=== PATIENT | female | born 1975 | race Caucasian/White ===

== ENCOUNTER 2019-05-30 18:11 | Emergency (ER) | payer OTHER, SELFPAY ==
--- NOTE | 2019-05-30 18:18 | ED_ITS ---
Entered by Hortencia Douglas, acting as scribe for HPI - Extremity Injury (Upper) General: Chief Complaint: Extremity Injury, Lower Stated Complaint: left arm pain Time Seen by Provider: 05/30/19 18:17 Source: patient and RN notes reviewed Mode of arrival: ambulatory Limitations: no limitations History of Present Illness: HPI narrative: 43 yo female presents to ED with complaints of L arm pain. She said this began 1 week ago with pain in her armpit which migrated to her L side neck then down her L arm. She describes the pain as a constant ache . She has had shortness of breath but has had no chest pain. She has a reddened area in the crease of her L elbow. She said nothing relieves the pain nor worsens the pain. The patient has a history of high blood pressure but no prior history but has a strong family history of cardiac problems, breast cancer and diabetes. MD complaint: injury to: left, shoulder and arm Onset (ago): week(s) (1) Other Extremity Injury: Left: arm and shoulder Other injuries: none Severity: moderate Relieving factors: none Exacerbating factors: none Context: other (no injury, pain developed) Associated symptoms: Reports neck pain (L side) and other (short of breath) Treatments prior to arrival: NSAIDS Review of Systems General: Reports: other (negative unless marked) Const: Denies: fever, chills, body aches, fatigue, malaise or diaphoresis Eyes: Denies: change in vision or blurry vision ENMT: Denies: throat pain, painful swallowing, hoarseness, ear pain, ear discharge, Change in hearing or nasal discharge Card: Denies: chest pain, palpitations, irregular heart rhythm, syncope, pre- syncope, shortness of breath on exertion or shortness of breath when lying down Resp: Denies: productive cough, non-productive cough, wheezing, coughing up blood or chest congestion GI: Denies: abdominal pain, nausea, vomiting, vomiting blood, coffee grounds in vomit, diarrhea, constipation, cramping, blood in stool or black tarry stool : Denies: flank pain, painful urination, urinary frequency, urinary urgency, decreased urine ouput, urinary incontinence or blood in urine Musc: Reports: neck pain (L side) Skin/Breast: Denies: skin tenderness or yellow skin Santi/Lymph: Denies: easy bruising, easy bleeding, petechiae or enlarged lymph nodes All/Imm: Denies: hives, throat swelling, tongue swelling, facial swelling or acute wheezing PFSH ED PFSH: Social History Smoking and tobacco status: former smoker Physical Exam Const: COMMON NORMALS: no apparent distress, oriented x3, no limitations, healthy appearing and well nourished EXAM LIMITATIONS: no altered mental status GENERAL APPEARANCE: cooperative, well kempt and well developed ORIENTATION/CONSCIOUSNESS: Yes awake HENMT: COMMON NORMALS: normocephalic, head/scalp atraumatic, hearing grossly normal bilaterally, external ears normal, EAC's normal, external nose normal and moist oral mucous membranes HEAD & SCALP: normal to inspection, normocephalic and atraumatic FACE & SINUS: normal facial exam and face symmetric NOSE: external nose normal and nares normal EXTERNAL EAR: Yes external ears normal EXTERNAL AUDITORY CANAL: EAC's normal MOUTH: oral and palatal mucosa normal and tongue normal Eye: COMMON NORMALS: PERRL, EOMs intact bilaterally, conjunctivae normal and no scleral icterus GENERAL EYE: normal appearance of both eyes and normal light reflex CONJUNCTIVA: Yes conjunctivae normal SCLERA: sclerae normal CORNEA: Yes corneas normal PUPIL: Yes PERRL DIRECT OPHTHALMOSCOPY: Yes normal light reflex Neck/C-Spine: COMMON NORMALS: full ROM, no lymphadenopathy, supple, no meningeal signs and no JVD GENERAL: Yes normal visual inspection and Yes trachea midline CERVICAL SPINE: Yes cervical ROM normal Chest: COMMONS NORMALS: inspection of chest normal and palpation of chest normal Resp: COMMON NORMALS: normal respiratory effort, no retractions, no use of accessory muscles and clear to auscultation bilaterally EFFORT & INSPECTION: Yes able to speak in complete sentences AUSCULTATION: clear to auscultation bilaterally Cardio: COMMON NORMALS: no JVD, regular rate, regular rhythm, S1 normal heart sound, S2 normal heart sound, no gallops, no clicks, no murmurs and no rub JUGULAR VENOUS DISTENTION: no JVD RATE: regular rate RHYTHM: regular rhythm HEART SOUNDS: S1 normal and S2 normal GI: COMMON NORMALS: soft to palpation, non-tender, no hepatosplenomegaly and no masses INSPECTION: Yes normal to inspection PALPATION: Yes soft and Yes no hepatosplenomegaly : COMMON NORMALS: Yes no CVA tenderness BLADDER/KIDNEY EXAM: Yes no CVA tenderness Back/Pelvis: COMMON NORMALS: no CVA tenderness, thoracic and lumbar spine normal to inspection, no thoracic nor lumbar tenderness and thoraco-lumbar ROM normal Extremity: COMMON NORMALS: normal to inspection, full ROM, normal capillary refill, no joint enlargement, no clubbing, cyanosis or edema and no calf tenderness Neuro: COMMON NORMALS: oriented x3, CN's II-XII intact bilaterally, moves all extremities, no focal motor deficits and no sensory deficits noted MENINGEAL SIGNS: Yes no meningeal signs Psych: COMMON NORMALS: mental status grossly normal, thought process normal, cooperative, affect normal, speech normal and activity/motor behavior normal APPEARANCE: Yes well kempt SPEECH: Yes normal speech THOUGHT PROCESS: normal thought process Skin: COMMON NORMALS: skin turgor normal, no jaundice, no petechiae and no mottling GENERAL SKIN EXAM: turgor normal Course Vital Signs: Vital signs: Vital Signs Temperature 98.3 F 05/30/19 19:50 Pulse Rate 91 05/30/19 19:50 Respiratory Rate 14 05/30/19 19:50 Blood Pressure 136/90 05/30/19 19:50 Pulse Oximetry 99 05/30/19 19:50 MDM - Extremity Injury (Upper) MDM Narrative: Medical decision making narrative: Samra is a nice 43-year-old female who comes in complaining of left arm pain. The pain is primarily in the left antecubital fossa. She is primarily concerned about a blood clot but her d-dimer is negative and there is no arm swelling. She has no chest pain and her shortness of breath is really more of her being scared her pulse ox is normal and she has a normal respiratory rate. Her chest x-ray is clear. She has had constant pain for a week with a normal EKG and a troponin has come back as low as it can possibly go on our scale. Per our algorithm more than 12 hours of constant pain with a normal EKG and troponin rules out heart as a cause. The patient now offers further history that she has had the redness in her left antecubital fossa that extends clear up to her axilla but it improved. She is concerned about infection but I think this is more like an allergic reaction. I will place her on Keflex per her request but I have informed her she needs to take Benadryl [id number] and she agrees to try this as well. I did offer to keep her for further testing of her heart to include at least one more EKG and troponin but she declines. She does understand the risks of leaving without further evaluation including ultimately cardiac lack or but despite my offer she wants to go home at this time. She does understand she is welcome to return if she changes her mind. Lab Data: Attestation: I reviewed the patient's lab results. Labs: Lab Results 05/30/19 05/30/19 05/30/19 Range/Units 18:30 18:30 18:30 WBC 8.4 (4.0-10.0) 10^3/ uL RBC 4.65 (4.1-5.3) 10^6/u L Hgb 13.2 (11.5-15.3) g/dL Hct 41.3 (37.0-47.0) % MCV 88.8 (81-99) fL MCH 28.4 (28.0-34.0) pg MCHC 32.0 (30.0-36.0) g/dL RDW 13.9 (12.1-15.1) % Plt Count 267 (130-400) 10^3/c mm MPV 10.5 H (7.4-10.4) fL Neut % (Auto) 56.9 % Lymph % (Auto) 30.0 % [place] % (Auto) 7.0 % Eos % (Auto) 4.7 % Baso % (Auto) 0.9 % Neut # (Auto) 4.8 (1.8-7.7) 10^3/u L Lymph # (Auto) 2.5 (0.8-4.8) 10^3/u L [place] # (Auto) 0.6 (0.2-0.9) 10^3/u L Eos # (Auto) 0.4 (0.0-0.8) 10^3/u L Baso # (Auto) 0.1 (0.0-0.1) 10^3/u L Nucleated RBC % (a uto) 0 % Nucleated RBCs # 0.0 /100WBC D-Dimer <= 0.27 (0-0.59) ug/mIFE U Sodium 138 (136-145) mmol/L Potassium 3.9 (3.5-5.1) mmol/L Chloride 101 (98-107) mmol/L Carbon Dioxide 25 (22-29) mmol/L Anion Gap 15.9 (5-19) BUN 12 (6-20) mg/dL Creatinine 0.7 (0.5-0.9) mg/dL GFR Calculation 90.5 (90-130) mL/min Glucose 97 (65-115) mg/dL Calculated Osmolal ity 282 L (285-295) mOsm/k g Calcium 9.9 (8.5-10.5) mg/dL Total Bilirubin 0.2 (0.15-1.2) mg/dL AST 20 (0-32) U/L ALT 29 (0-33) U/L Alkaline Phosphata se 62 (35-105) IU/L Troponin T Baselin e (0-10) ng/mL Total Protein 7.9 (6.6-8.7) g/dL Albumin 5.0 (3.5-5.2) g/dL Globulin 2.9 (1.3-4.6) g/dL 03/25/20 Range/Units 18:30 WBC (4.0-10.0) 10^3/ uL RBC (4.1-5.3) 10^6/u L Hgb (11.5-15.3) g/dL Hct (37.0-47.0) % MCV (81-99) fL MCH (28.0-34.0) pg MCHC (30.0-36.0) g/dL RDW (12.1-15.1) % Plt Count (130-400) 10^3/c mm MPV (7.4-10.4) fL Neut % (Auto) % Lymph % (Auto) % [place] % (Auto) % Eos % (Auto) % Baso % (Auto) % Neut # (Auto) (1.8-7.7) 10^3/u L Lymph # (Auto) (0.8-4.8) 10^3/u L [place] # (Auto) (0.2-0.9) 10^3/u L Eos # (Auto) (0.0-0.8) 10^3/u L Baso # (Auto) (0.0-0.1) 10^3/u L Nucleated RBC % (a uto) % Nucleated RBCs # /100WBC D-Dimer (0-0.59) ug/mIFE U Sodium (136-145) mmol/L Potassium (3.5-5.1) mmol/L Chloride (98-107) mmol/L Carbon Dioxide (22-29) mmol/L Anion Gap (5-19) BUN (6-20) mg/dL Creatinine (0.5-0.9) mg/dL GFR Calculation (90-130) mL/min Glucose (65-115) mg/dL Calculated Osmolal ity (285-295) mOsm/k g Calcium (8.5-10.5) mg/dL Total Bilirubin (0.15-1.2) mg/dL AST (0-32) U/L ALT (0-33) U/L Alkaline Phosphata se (35-105) IU/L Troponin T Baselin e 6 (0-10) ng/mL Total Protein (6.6-8.7) g/dL Albumin (3.5-5.2) g/dL Globulin (1.3-4.6) g/dL Imaging Data^: CXR: My impression: No acute cardiopulmonary findings. EKG Data^: EKG 1: Attestation: I personally reviewed and interpreted this EKG as follows: EKG interpretation date: 05/30/19 EKG interpretation time: 18:41 Interpretation: Normal sinus rhythm at 94 beats a minute, normal axis, no blocks, normal intervals. No acute ST or T wave changes. Discharge Plan Discharge Patient Disposition: Home, Self-Care Clinical Impression: Cellulitis Qualifiers: Site of cellulitis: extremity Site of cellulitis of extremity: upper extremity Laterality: left Qualified Code(s): L03.114 - Cellulitis of left upper limb Condition: Stable Prescriptions: New Keflex 500 mg capsule 500 mg PO QID 10 Days Qty: 40 RF: 0 No Action pantoprazole 40 mg PO DAILY RF: 0 Xanax 0.25 - 0.5 mg PO Q8H PRN (Reason: Anxiety) RF: 0 triamterene-hydrochlorothiazid 37.5-25 mg tablet 1 tab PO DAILY RF: 0 norethindrone (contraceptive) [Christin] 0.35 mg tablet 0.35 mg PO DAILY RF: 0 topiramate 50 mg tablet 50 mg PO BID PRN (Reason: Headache) RF: 0 Vitamin B-12 1,000 mcg Tablet 1,000 mcg PO DAILY RF: 0 Ibuprofen PM 200-38 mg Tablet 1 tab PO PRN RF: 0 Discharge Orders: Discharge Order (Routine); Ordered 05/30/19 Ordered By: Kajal Parker Referrals: Rachael Mejia FNP-C [Primary Care Provider] - 1-3 days Fe Ferrer FNP [Family Provider] - Discharge Diet: Advance as tolerated Discharge Activity: Increase activity as tolerated Patient Instructions: Cellulitis (ED) Activity Restrictions/Additional Instructions: Please return to the ER immediately for any of the signs or symptoms listed on your discharge instruction sheets, worsening/changing of your symptoms, you are not getting better as quickly as expected, or for ANY other cause or concerns. You have been offered further evaluation and care of your heart to include repeat EKG and blood tests but have declined. If you change your mind or your symptoms change/worsen in any way you are more than welcome to return to the ER for recheck and further evaluation and care. Discharge Date/Time: 05/30/19 19:51 Coding Level of Care Code ED Biomass Boiler Operator for Chg Fwd Exam Comprehensive The documentation recorded by the Stella bucio Valerie R, accurately reflects the service I personally performed and the decisions made by Elena araya Eli N May 30, 2019 18:11
[2019-05-30 18:19] VITALS: BP 155/106; PULSE 95; RESP 16; TEMP 36.7; O2SAT 99; BMI 31.6
--- NOTE | 2019-05-30 18:21 | XR_ITS ---
WS: [id number] Portable AP upright chest, 05/30/2019 Clinical Data: cough Comparison: PA and lateral chest, 01/11/2018. Findings: No nodules, masses or effusions are seen. The heart is normal. The pulmonary vascularity is not increased. No pneumonia or pneumothorax is seen. XR/XR chest 1V portable [id number] Impression: Negative chest.
--- NOTE | 2019-05-30 18:22 | ECG_ITS ---
Measurements Intervals [place] Rate: 94 P: 59 [place]: 151 QRS: 76 QRSD: 90 T: 28 QT: 355 QTc: 446 SINUS RHYTHM No previous ECG available for comparison Electronically Signed On 05-31-2019 10:30:12 CDT by Elif Hooks M.D. [email or web address]
[2019-05-30 18:43] LABS: Basophils # 0.1 10^3/uL (0.0-0.1); Basophils % 0.9 %; Eosinophils # 0.4 10^3/uL (0.0-0.8); Eosinophils % 4.7 %; Hematocrit 41.3 % (37.0-47.0); Hemoglobin 13.2 g/dL (11.5-15.3); Lymphocytes # 2.5 10^3/uL (0.8-4.8); Mean Corpuscular Hemoglobin 28.4 pg (28.0-34.0); Mean Corpuscular Volume 88.8 fL (81-99); Mean Platelet Volume 10.5 fL (7.4-10.4); Monocytes # 0.6 10^3/uL (0.2-0.9); Neutrophils # 4.8 10^3/uL (1.8-7.7); Neutrophils % 56.9 %; Nucleated Red Blood Cells % 0 %; Platelet Count 267 10^3/cmm (130-400); Red Blood Count 4.65 10^6/uL (4.1-5.3); Red Cell Distribution Width 13.9 % (12.1-15.1); White Blood Count 8.4 10^3/uL (4.0-10.0)
[2019-05-30] MEDS: ondansetron 2 mg/ML SDV 2 mL 4 MG IVP (18:43)
[2019-05-30] MEDS: aspirin 325 mg Tablet PO (18:43)
[2019-05-30] MEDS: sodium chloride 0.9% 1,000 ML 100 ML IV (18:43)
[2019-05-30] MEDS: morphine 4 mg/mL SDV 1 mL IVP (18:44)
[2019-05-30 18:57] LABS: D Dimer <= 0.27 ug/mIFEU (0-0.59)
[2019-05-30 18:59] LABS: Alanine Aminotransferase 29 U/L (0-33); Alkaline Phosphatase 62 IU/L (35-105); Anion Gap 15.9 (5-19); Aspartate Amino Transferase 20 U/L (0-32); Blood Urea Nitrogen 12 mg/dL (6-20); Calcium 9.9 mg/dL (8.5-10.5); Carbon Dioxide 25 mmol/L (22-29); Chloride 101 mmol/L (98-107); Globulin 2.9 g/dL (1.3-4.6); Glomerular Filtration Rate 90.5 mL/min (90-130); Glucose 97 mg/dL (65-115); Osmolality Calculated 282 mOsm/kg (285-295); Potassium 3.9 mmol/L (3.5-5.1); Sodium 138 mmol/L (136-145); Total Bilirubin 0.2 mg/dL (0.15-1.2); Total Protein 7.9 g/dL (6.6-8.7)
[2019-05-30 19:01] LABS: Troponin(5th) Baseline 6 ng/mL (0-10)
[2019-05-30 19:50] VITALS: BP 136/90; PULSE 91; RESP 14; TEMP 36.8; O2SAT 99
== END 2019-05-30 19:51 | disposition home or self-care (01) ==
PROVIDERS: Emergency Provider Emergency Medicine; Family Provider Nurse Practitioner Family; PCP Nurse Practitioner Family
DX: L03.90 Cellulitis, unspecified (principal); Z87.891 Personal history of nicotine dependence
CPT/HCPCS: 12345; 36415; 71045; 80053; 84484; 85025; 85378; 93005; 96361; 96374; 96375; 99281; 99284; J2270; J2405; J7030

== ENCOUNTER → 2019-11-23 11:48 | Outpatient (BNVA) | payer OTHER, SELFPAY | PROVIDERS: Family Provider Nurse Practitioner Family; PCP Nurse Practitioner Family; Visit Provider Nurse Practitioner Family | DX: Z20.828 Contact with and (suspected) exposure to other viral communicable diseases (principal) | CPT/HCPCS: 87635 ==

== ENCOUNTER → 2020-01-14 14:06 | Outpatient (BNVA) | payer OTHER, SELFPAY | PROVIDERS: Family Provider Nurse Practitioner Family; PCP Nurse Practitioner Family; Visit Provider Nurse Practitioner Family | DX: Z11.59 Encounter for screening for other viral diseases (principal); J06.9 Acute upper respiratory infection, unspecified; Z20.828 Contact with and (suspected) exposure to other viral communicable diseases | CPT/HCPCS: 87635 ==

== ENCOUNTER → 2020-09-24 09:39 | Outpatient (BNVA) | payer OTHER, SELFPAY | PROVIDERS: Family Provider Nurse Practitioner Family; PCP Nurse Practitioner Family; Visit Provider Obstetrics & Gynecology | DX: N93.9 Abnormal uterine and vaginal bleeding, unspecified (principal); Z12.4 Encounter for screening for malignant neoplasm of cervix; K56.41 Fecal impaction; N81.6 Rectocele; N81.4 Uterovaginal prolapse, unspecified; R33.9 Retention of urine, unspecified | CPT/HCPCS: 88175; 88305 ==

== ENCOUNTER → 2020-10-08 08:53 | Outpatient (BNVA) | payer OTHER, SELFPAY | PROVIDERS: Family Provider Nurse Practitioner Family; PCP Nurse Practitioner Family; Visit Provider Obstetrics & Gynecology | DX: N93.9 Abnormal uterine and vaginal bleeding, unspecified (principal); D25.9 Leiomyoma of uterus, unspecified; N85.4 Malposition of uterus | CPT/HCPCS: 76830 ==

== ENCOUNTER → 2020-10-23 11:45 | Outpatient (BNVA) | payer OTHER, SELFPAY | PROVIDERS: PCP Nurse Practitioner Family; Visit Provider Obstetrics & Gynecology | DX: K56.41 Fecal impaction (principal); N81.6 Rectocele; Z20.822 Contact with and (suspected) exposure to COVID-19; N81.89 Other female genital prolapse; R33.9 Retention of urine, unspecified; D25.9 Leiomyoma of uterus, unspecified; N93.9 Abnormal uterine and vaginal bleeding, unspecified; N81.4 Uterovaginal prolapse, unspecified | CPT/HCPCS: 87635 ==

== ENCOUNTER 2020-10-24 08:47 | Outpatient (CLI) | payer OTHER, SELFPAY ==
--- NOTE | 2020-10-24 08:55 | US_ITS ---
WS: [id number] ULTRASOUND ABDOMEN LIMITED CLINICAL INFORMATION: ABD PAIN COMPARISON: None. FINDINGS: Liver Size: Normal. Craniocaudal length: 12.6 cm. Echogenicity: Normal. Surface nodularity: None. Mass (size and location): None. Bile ducts Intrahepatic ducts: Normal. Common bile duct diameter: 0.2 cm. Gallbladder Gallbladder difficult to visualize and likely contracted. Common bile duct is normal. Pancreas Normal as visualized Right kidney: Normal. Hydronephrosis: None. Size: 10.7 cm x 4.3 cm x 4.5 cm. Abdominal aorta and IVC Visualized portions are normal. Ascites: None. US/US gall bladder [id number] IMPRESSION: 1. Normal liver. 2. Gallbladder difficult to visualize and is likely contracted. 3. Normal common bile duct. 4. No hydronephrosis in right kidney.
== END 2020-10-24 08:48 | disposition home or self-care (01) ==
LOC: US 08:48
PROVIDERS: PCP Nurse Practitioner Family; Visit Provider Nurse Practitioner Family
DX: R10.9 Unspecified abdominal pain (principal); K21.9 Gastro-esophageal reflux disease without esophagitis
CPT/HCPCS: 76705

== ENCOUNTER 2020-10-28 12:38 | Observation (INO) | payer OTHER, SELFPAY ==
[2020-10-27 13:32] VITALS: BMI 32.4
[2020-10-28] VITALS (15 sets, daily range): BP systolic 97–159; BP diastolic 59–113; PULSE 61–86; RESP 11–20; TEMP 36.3–37; O2SAT 92–100
[2020-10-28 08:21] LABS: OR HCG Qualitative Urine Negative (Negative)
[2020-10-28] MEDS: acetaminophen 1,000 MG/100 ML PIGGYBACK 400 MG IV (08:55)
[2020-10-28] MEDS: phenazopyridine 100 mg Tablet 200 MG PO (09:00)
[2020-10-28] MEDS: gabapentin 300 mg Capsule PO (09:00)
[2020-10-28] MEDS: sodium chloride 0.9% 1,000 ML 30 ML IV (09:00)
[2020-10-28] MEDS: scopolamine 1.5 Patch 1 PATCH TRANSDERMA (09:00)
[2020-10-28] MEDS: ketorolac 30 mg/mL INJ IVP ×3 (09:01→23:43)
[2020-10-28] MEDS: CELEcoxib 200 mg Capsule 400 MG PO (09:01)
[2020-10-28 09:07] LABS: Basophils # 0.1 10^3/uL (0.0-0.1); Basophils % 1.2 %; Eosinophils # 0.3 10^3/uL (0.0-0.8); Eosinophils % 4.5 %; Hematocrit 37.6 % (37.0-47.0); Hemoglobin 12.3 g/dL (11.5-15.3); Lymphocytes # 2.1 10^3/uL (0.8-4.8); Lymphocytes % 36.5 %; Mean Corpuscular HGB Conc 32.7 g/dL (30.0-36.0); Mean Corpuscular Hemoglobin 27.4 pg (28.0-34.0); Mean Corpuscular Volume 83.7 fl (81-99); Mean Platelet Volume 10.5 fL (7.4-10.4); Monocytes # 0.5 10^3/uL (0.2-0.9); Neutrophils # 2.78 10^3/uL (1.8-7.7); Neutrophils % 48.5 %; Nucleated Red Blood Cells % 0 %; Platelet Count 252 10^3/cmm (130-400); Red Blood Count 4.49 10^6/uL (4.1-5.3); White Blood Count 5.8 10^3/uL (4.0-10.0)
--- NOTE | 2020-10-28 09:19 | P.HPUD_ITS ---
Surgery/Procedure H&P Update DATE OF PROCEDURE: October 28, 2020 DATE H&P PERFORMED: 10/23/20 H&P UPDATE INFORMATION: I have reviewed H&P completed within last 30 days, I have examined patient prior to procedure and No changes to prior documentation PREOP DIAGNOSIS: uterine leiomyoma, AUB, loss of perineal body, uterine prolapse, rectocele PLANNED PROCEDURE: Operation Date: 10/28/20 09:25 Proposed Procedures p Laparoscopic Assist Vaginal Hysterectomy 02311 01942 24253 N81.89 N81.6 R33.9 R56.41(Not Applicable) - Maura Bhandari MD s Bilateral Salpingectomy 19630 68160 46774 N81.89 N81.6 R33.9 R56.41(Bilateral) - Maura Bhandari MD s Posterior Repair [id number] 89109 02917 N81.89 N81.6 R33.9 R56.41(Not Applicable) - Maura Bhandari MD s Perineorrhaphy 95237 26134 23525 N81.89 N81.6 R33.9 R56.41(Not Applicable) - Maura Bhandari MD s Possible Sling [id number] 80016 27318 N81.89 N81.6 R33.9 R56.41(Not Applicable) - Maura Bhandari MD
--- NOTE | 2020-10-28 09:19 | W.PM.OPSUD ---
Surgery/Procedure H&P Update DATE OF PROCEDURE: October 28, 2020 DATE H&P PERFORMED: 10/23/20 H&P UPDATE INFORMATION: I have reviewed H&P completed within last 30 days, I have examined patient prior to procedure and No changes to prior documentation PREOP DIAGNOSIS: uterine leiomyoma, AUB, loss of perineal body, uterine prolapse, rectocele PLANNED PROCEDURE: Operation Date: 10/28/20 09:25 Proposed Procedures p Laparoscopic Assist Vaginal Hysterectomy 86497 67760 10944 N81.89 N81.6 R33.9 R56.41(Not Applicable) - Maura Bhandari MD s Bilateral Salpingectomy 59183 65865 63311 N81.89 N81.6 R33.9 R56.41(Bilateral) - Maura Bhandari MD s Posterior Repair [id number] 82179 08087 N81.89 N81.6 R33.9 R56.41(Not Applicable) - Maura Bhandari MD s Perineorrhaphy 25678 76588 37051 N81.89 N81.6 R33.9 R56.41(Not Applicable) - Maura Bhandari MD s Possible Sling 21099 63422 75191 N81.89 N81.6 R33.9 R56.41(Not Applicable) - Maura Bhandari MD
--- NOTE | 2020-10-28 09:25 | ANES.PREANE2 ---
Pre-Anesthetic Assessment Pre-Anesthetic Assessment: Height/Weight: Height 1.63 m Weight 85.729 kg Temp Pulse Resp BP Pulse Ox 97.6 F 86 18 159/113 95 10/28/20 08:25 10/28/20 08:25 10/28/20 08:25 10/28/20 08:25 10/28/20 08:25 Preop Diagnosis: uterine leiomyoma, AUB, loss of perineal body, uterine prolapse, rectocele Proposed Procedure: Operation Date: 10/28/20 09:25 Proposed Procedures p Laparoscopic Assist Vaginal Hysterectomy 62752 63278 33530 N81.89 N81.6 R33.9 R56.41(Not Applicable) - Maura Bhandari MD s Bilateral Salpingectomy 05531 70846 12853 N81.89 N81.6 R33.9 R56.41(Bilateral) - Maura Bhandari MD s Posterior Repair 05894 05709 20760 N81.89 N81.6 R33.9 R56.41(Not Applicable) - Maura Bhandari MD s Perineorrhaphy 03915 34279 98350 N81.89 N81.6 R33.9 R56.41(Not Applicable) - Maura Bhandari MD s Possible Sling 68109 19402 64098 N81.89 N81.6 R33.9 R56.41(Not Applicable) - Maura Bhandari MD Was Beta Lauren taken within 24 hours: N/A Was Clonidine taken within 24 hours: N/A Last intake: Intake Last Liquid Date 10/27/20 Last Liquid Time 21:00 Last Solid Date 10/27/20 Last Solid Time 21:00 Social: Social History: No alcohol and No tobacco Exam: Pre-Anes Outpt Exam: alert, oriented x 3, clear to auscultation bilaterally and regular rate & rhythm Airway: Submandibular: WNL Cervical ROM: WNL MP: 2 Dentition: Full History/ROS: No significant history except as noted GI: GI: GERD Metabolic: Metabolic: Morbid obesity Anesthetic Plan: ASA status: 2 Anesthesia: General Risk of > 500 ml blood loss (7ml/kg in children): No Meds/Allergies Current Medications: Current Medications Generic Name Dose Route Start Last Admin Trade Name Freq PRN Reason Stop Dose Admin Sodium Chloride 1,000 mls @ 30 ml s/hr 10/28/20 08:15 10/28/20 09:00 Sodium Chloride 0.9% IV 10/29/20 08:14 30 mls/hr .Q24H CARMEN Administration PFSH Anesthesia PFSH: Family History Grandmother Diabetes Father Diabetes Hyperlipidemia Hypertension Mother Hypertension Denies family history of Colon cancer Ovarian cancer Clotting disorder Bleeding disorder Uterine cancer Stroke Social History Smoking and tobacco status: former smoker Data Anesthesia CBC & Chem 7: 10/28/20 08:35 10/28/20 08:35 Other Labs: Laboratory Results - last 48 hr 10/28/20 10/28/20 08:19 08:35 WBC 5.8 RBC 4.49 Hgb 12.3 Hct 37.6 MCV 83.7 MCH 27.4 L MCHC 32.7 RDW 14.0 Plt Count 252 MPV 10.5 H Neut % (Auto) 48.5 Lymph % (Auto) 36.5 [place] % (Auto) 9.0 Eos % (Auto) 4.5 Baso % (Auto) 1.2 Neut # (Auto) 2.78 Lymph # (Auto) 2.1 [place] # (Auto) 0.5 Eos # (Auto) 0.3 Baso # (Auto) 0.1 Nucleated RBC % (auto) 0 Nucleated RBCs # 0.0 Urine HCG, Qual Negative Cardiac Studies: No Data to Display
[2020-10-28 09:39] LABS: Anion Gap 13.7 (5-19); Blood Urea Nitrogen 10 mg/dL (6-20); Calcium 8.7 mg/dL (8.5-10.5); Carbon Dioxide 26 mmol/L (22-29); Chloride 103 mmol/L (98-107); Glomerular Filtration Rate 107.2 mL/min (90-130); Glucose 88 mg/dL (65-115); Osmolality Calculated 286 mOsm/kg (285-295); Potassium 3.7 mmol/L (3.5-5.1); Sodium 139 mmol/L (136-145)
[2020-10-28] MEDS: vasopressin 20 unit/mL INJ 4 UNIT INJECTION (10:25)
--- NOTE | 2020-10-28 12:43 | P.OP_ITS ---
Operative Report Date of procedure: October 28, 2020 Pre-op Diagnosis: uterine leiomyoma, AUB, loss of perineal body, uterine prolapse, rectocele Post-op diagnosis: same Post-op Findings: enlarged uterus, normal appearing fallopian tubes and ovaries, large rectocele, loose perineal body, stress urinary incontinence Procedure Done: laparoscopic assisted vaginal hysterectomy with bilateral sa lpingectomy, mid urethral sling with cystoscopy, posterior colporrhaphy, perineorrhaphy Specimens removed/disposition: uterus and bilateral fallopian tubes to pathology Surgeon: Maura Bhandari Anesthesia: General Estimated blood loss (mL): 300 IV fluids (mL): 1,500 Urine output (mL): 300 Complications: none Condition: stable Disposition: floor Procedure: The patient was taken to the operating room where general anesthesia was administered and found to be adequate. She was prepped and draped in the normal sterile fashion in the dorsal lithotomy position in [facility]. A Solorzano catheter was placed. A weighted speculum was placed into the vagina and the anterior lip of the cervix was grasped with a single tooth tenaculum. The Zumi uterine manipulator was placed. The weighted speculum was removed. The gloves were changed and attention was turned to the abdomen. A 5 mm infraumbilical incision was made. Using a 5 mm port with the camera, the port was placed into the abdomen. The abdomen was insufflated. Two low, lateral 5 mm ports were placed on the left and right under direct visualization from the camera. The right tube was grasped and elevated. Using the laparoscopic cautery, the mesosalpinx was divided between the ovary and tube. The tube was removed. This was performed the same way on the left. The uteroovarian ligaments as well as the round ligaments were ligated. Attention was then turned to the vaginal portion of the procedure. The weighted speculum was placed into the vagina. The zumi manipulator was removed. The single tooth tenaculum was removed and replaced with the tanner's tenaculum. 10 mL of dilute Pitressin was injected at the vesicovaginal junction. A circumferential incision was made at the vesicovaginal junction and the vaginal mucosa reflected cephalad. The posterior peritoneum was entered sharply with the Metzenbaum scissors and the long weighted speculum replaced. Using the Mindi clamps the uterosacral ligaments were clamped cut and suture- ligated. The anterior peritoneum was entered sharply with the metzenbaum scissors. Then sequentially the uterine arteries and cardinal ligaments were clamped cut and suture-ligated. A single-tooth tenaculum was used to deliver the uterus. The remaining segement of the utero-ovarian ligaments were clamped cut and suture-ligated bilaterally and the specimen was removed. There was good hemostasis with only mild bleeding from the cuff. The peritoneum was closed with a pursestring using 2-0 Vicryl. The vaginal cuff was closed with 0 Vicryl in a running locked pattern incorporating the uterosacral ligaments into the lateral aspects of the vaginal cuff. The Solorzano catheter was removed and the cystoscope advanced into the bladder. The patient was given pyridium and bilateral spill was noted. There were no injuries or deficits noted in the bladder. The cystoscope was removed and the Solorzano was replaced. Attention was turned to the mid urethral sling portion of the procedure. A weighted speculum was placed into the vagina and an Allis clamp was placed approximately 2 cm below the urethra and another placed approximately 3 cm distal from that. An incision was made between the 2. The tissue was sharply and bluntly dissected along the pubic ramus bilaterally. The sling was placed on the left first by going through the incision and attaching the sling to the obturator foramen membrane . The right side was performed in a similar fashion, placing the applicator through the incision and attaching to the obturator foramen membrane. The Solorzano catheter was removed and the cystoscope advanced into the bladder. pyridium was given and no mesh noted to be in the bladder. The fluid was left in the bladder and the sling was tightened until there was no leakage with valsalva. The tag of suture was trimmed. The incision was repaired with 2-0 Vicryl in a running locked fashion. Attention was then turned to the posterior repair. The vaginal cuff was identified and an allis clamp was placed in the midline of the vaginal mucosa, approximately 2 cm posterior to the cuff. A second allis clamp was placed in the midline of the vaginal mucosa, approximately 3 cm from the introitus. An incision was made in the midline from clamp to clamp. The vaginal mucosa was clamped laterally and the rectocele dissected off of the rectovaginal fascia. The rectocele was packed away and the rectovaginal fascia brought together in the midline with figure of 8 interrupted sutures of O- Vicryl. The packing was removed and the excess vaginal tissue trimmed. The incision was repaired with 0-Vicryl in a running fashion. Attention was then turned to the perineorrhphy. Allis clamps were placed on the posterior fourchette. A 3 cm wedge of the fourchette was removed. This was repaired in the usual fashion with O-vicryl. Vaginal packing was placed for good hemostasis. She tolerated the procedure well. Sponge lap and needle counts were correct x3. She was taken to the recovery room in stable condition. T
[2020-10-28] MEDS: HYDROcodone-acetaminophen 5-325 mg Tablet PO ×2 (13:48→20:32)
[2020-10-28] MEDS: ondansetron 2 mg/ML SDV 2 mL 4 MG IVP (13:49)
--- NOTE | 2020-10-28 16:01 | ANE.PACU2 ---
Inpatient post-anesthesia follow up: Airway intact: Yes Vital signs: Temperature 97.7 F Pulse Rate 68 Respiratory Rate 13 Blood Pressure 103/59 Pulse Oximetry 100 Oxygen Delivery Me thod Room Air Oxygen Flow Rate Fraction of Inspir ed Oxygen Hydration adequate: Yes Nausea and vomiting: No Pain level: 2 Mental status: Baseline
[2020-10-28] MEDS: docusate sodium 100 mg Capsule PO (17:17)
[2020-10-28] MEDS: dextrose 5%-lactated ringers 1,000 ML 125 ML IV (17:17)
[2020-10-28] MEDS: HYDROmorphone 1 mg/mL INJ 1 mL 1.5 MG IVP (17:18)
--- NOTE | 2020-10-28 17:45 | PC.NURSE ---
pt up to chair with minimal assistance, eating dinner. encouraged pt to stay up as long as desired, and call nurse for assistance back to bed. call light in reach, at bedside
[2020-10-28] MEDS: pantoprazole DR 40 mg Tablet PO (20:32)
[2020-10-29] MEDS: dextrose 5%-lactated ringers 1,000 ML 125 ML IV (00:57)
[2020-10-29 03:52] VITALS: BP 100/64; PULSE 65; RESP 18; TEMP 36.8; O2SAT 97
[2020-10-29] MEDS: HYDROcodone-acetaminophen 5-325 mg Tablet PO (03:52)
[2020-10-29 05:49] LABS: Hematocrit 29.9 % (37.0-47.0); Hemoglobin 9.7 g/dL (11.5-15.3); Mean Corpuscular HGB Conc 32.4 g/dL (30.0-36.0); Mean Corpuscular Hemoglobin 27.2 pg (28.0-34.0); Platelet Count 206 10^3/cmm (130-400); Red Blood Count 3.56 10^6/uL (4.1-5.3); White Blood Count 11.3 10^3/uL (4.0-10.0)
[2020-10-29] MEDS: ketorolac 30 mg/mL INJ IVP (06:17)
--- NOTE | 2020-10-29 06:49 | P.DS_ITS ---
Discharge Providers Date of Admission: 10/28/20 12:38 Date of Discharge: October 29, 2020 Attending Provider at Admission: Maura Bhandari MD Attending Provider at Discharge: Maura Bhandari MD Primary Care Provider: Sandra Jeter APN Reason for Visit Reason for Visit: Laparoscopic Assisted Vaginal Hysterectomy Hospital Course Hospital Course The patient was admitted for surgery. She did well postoperatively and is ready for discharge. Physical Exam Narrative: EXAM NARRATIVE: The patient is doing well this morning. no concerns Const: COMMON NORMALS: no acute distress, patient oriented x3, no limitations, healthy appearing, alert and well nourished GENERAL APPEARANCE: cooperative, comfortable, well kempt and well developed ORIENTATION/CONSCIOUSNESS: Yes awake, Yes oriented to person and Yes oriented to place Resp: COMMON NORMALS: normal respiratory effort EFFORT & INSPECTION: Yes able to speak in complete sentences : OTHER: packing removed Extremity: COMMON NORMALS: no clubbing, cyanosis or edema and no calf tenderness Neuro: COMMON NORMALS: patient oriented x3 SENSORIUM/ORIENTATION: Yes alert, Yes oriented to person and Yes oriented to place Psych: APPEARANCE: Yes well kempt Urinary Catheter Management^: Solorzano: Cath Placed During This Visit: yes, but has since been removed by the nurse Reason for Continuing Indwelling Catheter: Decision to DC Catheter Urinary Catheter Date of Insertion: 10/28/20 Urinary Catheter Time of Insertion: 10:04 Date Urinary Catheter Removed: 10/29/20 Time Urinary Catheter Discontinued: 05:00 Discharge Data Data Completed and Pending: Pending at discharge Category Date Time Status ES surgery / GI i mages Routine Exams 10/28/20 08:34 Taken Urine Culture [facility] 10/28/20 10:04 Received Pathology: Surgic al [PTH] Routine Pth 10/28/20 13:02 Ordered Labs from last 24 hours 10/29/20 10/28/20 10/28/20 05:00 08:35 08:35 WBC 11.3 H 5.8 RBC 3.56 L 4.49 Hgb 9.7 L 12.3 Hct 29.9 L 37.6 MCV 84.0 83.7 MCH 27.2 L 27.4 L MCHC 32.4 32.7 RDW 14.0 14.0 Plt Count 206 252 MPV 11.0 H 10.5 H Neut % (Auto) 48.5 Lymph % (Auto) 36.5 [place] % (Auto) 9.0 Eos % (Auto) 4.5 Baso % (Auto) 1.2 Neut # (Auto) 2.78 Lymph # (Auto) 2.1 [place] # (Auto) 0.5 Eos # (Auto) 0.3 Baso # (Auto) 0.1 Nucleated RBC % (a uto) 0 Nucleated RBCs # 0.0 Sodium 139 Potassium 3.7 Chloride 103 Carbon Dioxide 26 Anion Gap 13.7 BUN 10 Creatinine 0.6 GFR Calculation 107.2 Glucose 88 Calculated Osmolal ity 286 Calcium 8.7 Urine HCG, Qual 10/28/20 08:19 WBC RBC Hgb Hct MCV MCH MCHC RDW Plt Count MPV Neut % (Auto) Lymph % (Auto) [place] % (Auto) Eos % (Auto) Baso % (Auto) Neut # (Auto) Lymph # (Auto) [place] # (Auto) Eos # (Auto) Baso # (Auto) Nucleated RBC % (a uto) Nucleated RBCs # Sodium Potassium Chloride Carbon Dioxide Anion Gap BUN Creatinine GFR Calculation Glucose Calculated Osmolal ity Calcium Urine HCG, Qual Negative Vitals: Last Vital Signs Temp 98.2 F 10/29/20 03:52 Pulse 65 10/29/20 03:52 Resp 18 10/29/20 03:52 BP 100/64 10/29/20 03:52 Pulse Ox 97 10/29/20 03:52 Discharge Plan Discharge Patient Disposition: Home Condition: Stable Prescriptions: New hydrocodone-acetaminophen 5-325 mg Tablet 1 tab PO Q4H PRN (Reason: Moderate To Severe Pain) Qty: 30 RF: 0 Continued famotidine 40 mg tablet 40 mg PO DAILY RF: 0 Xanax 0.25 - 0.5 mg PO Q8H PRN (Reason: Anxiety) RF: 0 triamterene-hydrochlorothiazid 37.5-25 mg tablet 1 tab PO DAILY RF: 0 pantoprazole 40 mg PO BID RF: 0 Discharge Orders: Discharge Order (Routine); Ordered 10/29/20 Ordered By: Maura Bhandari Patient Instructions: Opioid Safety Discharge Attestations Time Spent in Discharge Care*: less than 30 min Quality Metrics Clinical Quality Measures During this hospital stay, did patient experience: None Coding Level of Care Code Acute Chg FW DC note
[2020-10-29] MEDS: docusate sodium 100 mg Capsule PO (08:09)
[2020-10-29] MEDS: pantoprazole DR 40 mg Tablet PO (08:09)
[2020-10-29] MEDS: famotidine 20 mg Tablet 40 MG PO (08:09)
[2020-10-29 10:30] VITALS: BP 119/76; PULSE 64; RESP 16; O2SAT 100
--- NOTE | 2020-10-29 12:33 | PC.NURSE ---
Patient chose to stay longer and attempt to void again.
[2020-10-29] MEDS: ibuprofen 800 mg tablet PO (14:37)
[2020-10-29 17:04] VITALS: BP 110/71; PULSE 71; RESP 16; TEMP 36.9; O2SAT 98
--- NOTE | 2020-10-29 19:37 | PC.NURSE ---
bladder scan done at this time pt has 277mL left in bladder.
[2020-10-29 19:57] VITALS: BP 123/79; PULSE 73; RESP 17; TEMP 37.2; O2SAT 99
[2020-10-29 20:00] VITALS: BP 123/79; PULSE 73; RESP 17; TEMP 37.2; O2SAT 99
--- NOTE | 2020-10-29 20:00 | PC.NURSE ---
pt sent home with chambers catheter. education given on how to change to leg bag when needed and to follow up with Dr. Bhandari on 11/03/20 at 1415 for PRV trial.
== END 2020-10-29 20:00 | disposition home or self-care (01) ==
LOC: OBGYN 12:38
PROVIDERS: Admitting Provider Obstetrics & Gynecology; PCP Nurse Practitioner Family; Visit Provider Obstetrics & Gynecology
PROC: 0UT9FZZ Resection of Uterus, Via Natural or Artificial Opening With Percutaneous Endoscopic Assistance (ICD-10-PCS; principal; 2020-10-28 09:15)
PROC: (CPT 58700; 2020-10-28 09:15)
PROC: (CPT 57250; 2020-10-28 09:15)
PROC: 0HQ9XZZ Repair Perineum Skin, External Approach (ICD-10-PCS; 2020-10-28 09:15)
PROC: (CPT 57288; 2020-10-28 09:15)
PROC: 0TJB8ZZ Inspection of Bladder, Via Natural or Artificial Opening Endoscopic (ICD-10-PCS; CPT 52000; 2020-10-28 09:15)
DX: D25.9 Leiomyoma of uterus, unspecified (principal); N93.9 Abnormal uterine and vaginal bleeding, unspecified; N81.4 Uterovaginal prolapse, unspecified; N39.3 Stress incontinence (female) (male); K21.9 Gastro-esophageal reflux disease without esophagitis; E66.01 Morbid (severe) obesity due to excess calories; Z68.32 Body mass index [BMI] 32.0-32.9, adult; Z82.49 Family history of ischemic heart disease and other diseases of the circulatory system; Z83.3 Family history of diabetes mellitus; Z87.891 Personal history of nicotine dependence
CPT/HCPCS: 57250; 57288; 58554; 36415; 51702; 51798; 80048; 81025; 84703; 85025; 85027; 87086; 88305; 88307; 96365; C1713; G0378; J0690; J1100; J1170; J1885; J1940; J2405; J2704; J3010; J3490; J7030

== ENCOUNTER 2020-11-02 10:03 | Emergency (ER) | payer OTHER, SELFPAY ==
[2020-11-02 10:20] VITALS: BP 138/79; PULSE 90; RESP 18; TEMP 37.2; O2SAT 96
[2020-11-02 10:28] VITALS: BP 138/79; PULSE 91; RESP 18; O2SAT 99
--- NOTE | 2020-11-02 10:37 | ED_ITS ---
HPI - Abdominal Pain General: Chief Complaint: Abdominal Pain Stated Complaint: hysterectomy surg on 2 ob worried poss infection Time Seen by Provider: 11/02/20 10:17 History of Present Illness: HPI narrative: Patient with recent SALES REPRESENTATIVE GROCERIES surgery. Does have a Solorzano cath in. Patient states she started with some abdominal cramp last night had some bloody discharge which she says is foul-smelling denies any drainage from incision. Has not had a fever but has had chills. MD elicited complaint: abdominal pain and other (Vaginal discharge) Onset (ago): hour(s) Pain Consistency: colicky Location: Suprapubic Severity: mild Quality: cramping Radiation: none Exacerbating factors: nothing Context: recent surgery/procedure Associated Symptoms: Reports chills and other (Vaginal discharge) Review of Systems Const: Reports: chills Eyes: Denies: change in vision or blurry vision ENMT: Denies: throat pain or nasal congestion Card: Denies: chest pain or dyspnea on exertion Resp: Denies: dyspnea, productive cough or non-productive cough GI: Reports: abdominal pain and other (Vaginal discharge) : Reports: vaginal discharge Musc: Denies: extremity pain Skin/Breast: Denies: rash Neuro: Denies: headache(s) Psych: Denies: anxiety or depression Santi/Lymph: Denies: easy bruising PFSH ED PFSH: Family History Grandmother Diabetes Father Diabetes Hyperlipidemia Hypertension Mother Hypertension Denies family history of Colon cancer Ovarian cancer Clotting disorder Bleeding disorder Uterine cancer Stroke Social History Smoking and tobacco status: former smoker Course Vital Signs: Vital signs: Vital Signs Temperature 99.0 F 11/02/20 10:20 Pulse Rate 91 11/02/20 10:28 Respiratory Rate 18 11/02/20 10:28 Blood Pressure 138/79 11/02/20 10:28 Pulse Oximetry 99 11/02/20 10:28 MDM - Abdominal Pain MDM Narrative: Medical decision making narrative: I spoke with Dr. Bhandari. She came down and saw the patient. Recommend Flagyl depend on what lab results were. CBC looks fine UA shows some white blood cells and bacteria in a cath s pecimen. I will go ahead and place on Flagyl. Lab Data: Labs: Lab Results 11/02/20 11/02/20 Range/Units 10:56 10:57 WBC 10.6 H (4.0-10.0) 10^3/ uL RBC 4.28 (4.1-5.3) 10^6/u L Hgb 11.5 (11.5-15.3) g/dL Hct 35.5 L (37.0-47.0) % MCV 82.9 (81-99) fl MCH 26.9 L (28.0-34.0) pg MCHC 32.4 (30.0-36.0) g/dL RDW 14.0 (12.1-15.1) % Plt Count 312 (130-400) 10^3/c mm MPV 10.0 (7.4-10.4) fL Neut % (Auto) 67.6 % Lymph % (Auto) 21.1 % [place] % (Auto) 6.9 % Eos % (Auto) 3.0 % Baso % (Auto) 1.0 % Neut # (Auto) 7.12 (1.8-7.7) 10^3/u L Lymph # (Auto) 2.2 (0.8-4.8) 10^3/u L [place] # (Auto) 0.7 (0.2-0.9) 10^3/u L Eos # (Auto) 0.3 (0.0-0.8) 10^3/u L Baso # (Auto) 0.1 (0.0-0.1) 10^3/u L Nucleated RBC % (a uto) 0 % Nucleated RBCs # 0.0 /100WBC Urine Color Yellow (Yellow) Urine Appearance Clear (CLEAR) Urine pH 6 (5-7) Ur Specific Gravit y 1.015 (1.005-1.030) Urine Protein Neg (Negative) Urine Glucose (UA) Norm (Normal) Urine Ketones Negative (Negative) Urine Blood Neg (Negative) Urine Nitrate Negative (Negative) Urine Bilirubin Neg (Negative) Urine Urobilinogen Norm (Negative) mg/dL Ur Leukocyte Isa ase 1+ H (Negative) Urine RBC None (0-2) /hpf Urine WBC 15-25 H (0-5) /hpf Ur Squamous Epith Cells 0-4 H (0-5) /hpf Amorphous Sediment Not Reportable Urine Bacteria 1+ H (NONE) /hpf Urine Mucus 2+ /hpf Discharge Plan Discharge Prescriptions: No Action famotidine 40 mg tablet 40 mg PO DAILY RF: 0 metronidazole [Flagyl] 500 mg tablet 500 mg PO BID Qty: 14 RF: 0 pantoprazole 40 mg Tablet,Delayed Release (Dr/Ec) 40 mg PO BID RF: 0 alprazolam 1 mg Tablet 0.5 - 1 mg PO BID PRN (Reason: Anxiety) Qty: 0 RF: 0 triamterene-hydrochlorothiazid 37.5-25 mg tablet 1 tab PO DAILY RF: 0 hydrocodone-acetaminophen 5-325 mg Tablet 1 tab PO Q4H PRN (Reason: Moderate To Severe Pain) Qty: 30 RF: 0 Coding Level of Care Code ED Director Special Education for Kesha Scott
[2020-11-02 11:09] LABS: Basophils # 0.1 10^3/uL (0.0-0.1); Eosinophils # 0.3 10^3/uL (0.0-0.8); Hematocrit 35.5 % (37.0-47.0); Hemoglobin 11.5 g/dL (11.5-15.3); Lymphocytes # 2.2 10^3/uL (0.8-4.8); Lymphocytes % 21.1 %; Mean Corpuscular HGB Conc 32.4 g/dL (30.0-36.0); Mean Corpuscular Hemoglobin 26.9 pg (28.0-34.0); Mean Corpuscular Volume 82.9 fl (81-99); Monocytes # 0.7 10^3/uL (0.2-0.9); Monocytes % 6.9 %; Neutrophils # 7.12 10^3/uL (1.8-7.7); Neutrophils % 67.6 %; Nucleated Red Blood Cells % 0 %; Platelet Count 312 10^3/cmm (130-400); Red Blood Count 4.28 10^6/uL (4.1-5.3); White Blood Count 10.6 10^3/uL (4.0-10.0)
--- NOTE | 2020-11-02 11:10 | PM.CONSULT ---
Providers/Reason For Consult Consulting Physician/Specialty*: NIGHT CLUB MANAGER Reason for Consult*: vaginal discharge Requesting Physician: Leo Pham MD Attending Physician: Maura Bhandari MD Primary Care Provider: Sandra Jeter APN History of Present Illness History of Present Illness Samra Mejia is a 45 year old female who had an LAVH, posterior repair, bilateral salpingectomy, midurethral sling and perineorrhaphy on 10/28. She was discharged from the hospital with the catheter in place on 10/29 due to inability to completely void after the catheter was removed. She was due to have the catheter removed in the office tomorrow. She reports that last night, she noticed a vaginal discharge that had a foul odor. She is still having some pink discharge. She denies any fever or pain or any other concerns. Review of Systems General: Reports: 10 or more systems reviewed and unremarkable except in HPI and below Meds/Allergies Home Medications and Allergies Home Medications Medication Instructions Recorded Confirmed Last Taken Type Xanax 0.25 - 0.5 mg PO Q8H PRN 05/30/19 10/28/20 10/26/20 History triamterene-hydrochlorothiazid 1 tab PO DAILY 05/30/19 10/28/20 10/26/20 History famotidine 40 mg tablet 40 mg PO DAILY 09/24/20 10/28/20 3 Days Ago History ~10/25/20 pantoprazole 40 mg PO BID 09/24/20 10/28/20 3 Days Ago History ~10/25/20 hydrocodone-acetaminophen 1 tab PO Q4H PRN #30 tab 10/29/20 Unknown Rx Allergies Allergy/AdvReac Type Severity Reaction Status Date / Time No Known Allergies Allergy Verified 11/02/20 10:20 PFSH Acute PFSH: Family History Grandmother Diabetes Father Diabetes Hyperlipidemia Hypertension Mother Hypertension Denies family history of Colon cancer Ovarian cancer Clotting disorder Bleeding disorder Uterine cancer Stroke Social History Smoking and tobacco status: former smoker Vitals/I&O/Wt Last Vital Signs Temp 99.0 F 11/02/20 10:20 Pulse 91 11/02/20 10:28 Resp 18 11/02/20 10:28 BP 138/79 11/02/20 10:28 Pulse Ox 99 11/02/20 10:28 Weight last 48 hrs Weight 187 lb Physical Exam Narrative: EXAM NARRATIVE: As I entered room, blood work is being drawn, a urine culture from the catheter is being obtained and the catheter is removed. Const: COMMON NORMALS: no acute distress, average body habitus, patient oriented x3, no limitations, healthy appearing, alert and well nourished GENERAL APPEARANCE: cooperative, comfortable, well kempt and well developed ORIENTATION/CONSCIOUSNESS: Yes awake, Yes oriented to person, Yes oriented to place and Yes oriented to time Resp: COMMON NORMALS: normal respiratory effort EFFORT & INSPECTION: Yes able to speak in complete sentences GI: COMMON NORMALS: Soft to palpation and non-tender PALPATION: Yes Soft to palpation : COMMON NORMALS: Yes normal external appearance and Yes normal appearance of the vagina OTHER: sutures are intact. pink discharge is present. vaginal cultures are obtained. Extremity: COMMON NORMALS: no clubbing, cyanosis or edema and no calf tenderness Neuro: COMMON NORMALS: patient oriented x3 SENSORIUM/ORIENTATION: Yes alert, Yes oriented to person, Yes oriented to place and Yes oriented to time Psych: COMMON NORMALS: mental status grossly normal, Normal thought process present, cooperative, normal affect and speech normal APPEARANCE: Yes grossly normal and Yes well kempt ATTITUDE: Yes calm and Yes engaged SPEECH: Yes normal speech THOUGHT PROCESS: Normal thought process present A&P Assessment and plan (1) Urinary retention with incomplete bladder emptying: catheter is removed and will allow to void and measure PVR If all checks out today, patient may skip her visit with me tomorrow. I will see her back in 5 weeks for postop exam Status: Acute (2) Vaginal discharge: vaginal culture taken will place on flagyl for presumed BV Status: Acute Coding Level of Care Code Acute Yardage Control Clerk for [facility] Fwd Diagnoses Urinary retention with incomplete bladder emptying R33.9 Vaginal discharge N89.8
[2020-11-02 11:34] LABS: Add Urine Microscopic? YES; Bilirubin Urine Neg (Negative); Blood Urine Neg (Negative); Glucose Urine UA Norm (Normal); Ketones Urine Negative (Negative); Leukocyte Esterase Urine 1+ (Negative); Nitrate Urine Negative (Negative); Protein Urine Neg (Negative); Specific Gravity, Urine 1.015 (1.005-1.030); Urine Appearance Clear (CLEAR); Urine Color Yellow (Yellow); Urobilinogen Urine Norm (Negative); WBC Urine 15-25 /hpf (0-5); pH Urine 6 (5-7)
[2020-11-02 11:36] LABS: Add Urine Culture? Yes; Bacteria Urine 1+ /hpf; Mucus Urine 2+ /hpf; Squamous Epithelial Cell Urine 0-4 /hpf (0-5)
[2020-11-02 12:10] VITALS: BP 118/81; PULSE 77; RESP 16; O2SAT 100
== END 2020-11-02 12:11 | disposition home or self-care (01) ==
PROVIDERS: Emergency Provider Nurse Practitioner Family; PCP Nurse Practitioner Family
DX: R10.9 Unspecified abdominal pain (principal); Z87.891 Personal history of nicotine dependence
CPT/HCPCS: 81001; 85025; 87070; 87077; 87086; 87186; 99282

== ENCOUNTER 2020-11-20 03:14 | Emergency (ER) | payer OTHER, SELFPAY ==
[2020-11-20 03:17] VITALS: BP 122/80; PULSE 77; RESP 18; TEMP 36.2; O2SAT 100; BMI 32.1
--- NOTE | 2020-11-20 03:35 | ECG_ITS ---
[facility] Test Date: 2020-11-20 Pat Name: Samra Mejia Department: Room: Gender: Female Sports Development Officer: : 1975 Requested By: Sekou Pittman Order Number: [id number] Mac MD: Elif Hooks M.D. Measurements Intervals Pioneer Rate: 66 P: 5 MS: 196 QRS: -23 QRSD: 93 T: 11 QT: 413 QTc: 434 Interpretive Statements SINUS RHYTHM BORDERLINE LEFT AXIS DEVIATION [QRS AXIS < -20] MODERATE VOLTAGE CRITERIA FOR LVH, CONSIDER NORMAL VARIANT [MEETS CRITERIA IN ONE OF: R(aVL), S(V1), R(V5), R(V5/V6)+S(V1)] Compared to ECG 05/30/2019 18:41:31 No significant changes Electronically Signed On 11-21-2020 18:55:54 CDT by Elif Hooks M.D. [id number]
--- NOTE | 2020-11-20 03:36 | W.ED.CHESTPA ---
HPI - Chest Pain General: Chief Complaint: Chest Pain Stated Complaint: Chest Pain Time Seen by Provider: 11/20/20 03:30 Source: patient Mode of arrival: ambulatory Limitations: no limitations History of Present Illness: HPI narrative: 45-year-old female who states she has been having gallbladder issues for months. She states she is seen last week by a surgeon at [facility] states that she had a HIDA scan that showed gallbladder dysfunction. She states she is supposed to follow-up with him today but overnight started having right upper quadrant epigastric pain. States the pain is a tightness type pain that radiates into her chest. States the same pain she has been having for months. She states her pain currently is a 6 out of 10. Denies any vomiting or diarrhea denies any worsening improving factors. Associated symptoms: Reports abdominal pain; Deny dyspnea or fever(s) Review of Systems Const: Denies: fever(s), chills, body aches or change in appetite Eyes: Denies: blurry vision or eye discomfort ENMT: Denies: throat pain or dental pain Card: Denies: chest pain Resp: Denies: dyspnea GI: Reports: abdominal pain : Denies: dysuria Musc: Denies: neck pain or back pain Skin/Breast: Denies: rash Neuro: Denies: headache(s) Psych: Denies: depression Santi/Lymph: Denies: easy bruising All/Imm: Denies: urticaria PFSH ED PFSH: Family History Grandmother Diabetes Father Diabetes Hyperlipidemia Hypertension Mother Hypertension Denies family history of Colon cancer Ovarian cancer Clotting disorder Bleeding disorder Uterine cancer Stroke Social History Smoking and tobacco status: former smoker Physical Exam Const: COMMON NORMALS: no acute distress, patient oriented x3 and healthy appearing HENMT: COMMON NORMALS: normocephalic and atraumatic HEAD & SCALP: normocephalic and atraumatic Eye: COMMON NORMALS: Equal, round and reactive pupils present and EOMs intact bilaterally PUPIL: Yes Equal, round and reactive pupils present Neck/C-Spine: COMMON NORMALS: full ROM and supple Chest: COMMONS NORMALS: normal inspection of the chest and normal palpation of entire chest wall Resp: COMMON NORMALS: normal respiratory effort, No retractions, No use of accessory muscles and clear to auscultation bilaterally AUSCULTATION: clear to auscultation bilaterally Cardio: COMMON NORMALS: regular rate, regular rhythm and No murmurs present (Cardio) RATE: regular rate RHYTHM: regular rhythm GI: COMMON NORMALS: Normal to inspection, nondistended, normoactive bowel sounds present, Soft to palpation and no masses PALPATION: Yes Soft to palpation OTHER: epigastric tenderness Extremity: COMMON NORMALS: normal to inspection and full ROM Neuro: COMMON NORMALS: patient oriented x3, moves all extremities and no focal motor deficits Psych: COMMON NORMALS: mental status grossly normal, Normal thought process present and cooperative THOUGHT PROCESS: Normal thought process present Skin: COMMON NORMALS: no rashes or lesions noted and no wounds GENERAL SKIN EXAM: no rashes or lesions noted Course Vital Signs: Vital signs: Vital Signs Temperature 97.2 F L 11/20/20 03:17 Pulse Rate 77 11/20/20 03:17 Respiratory Rate 20 H 11/20/20 04:27 Blood Pressure 122/80 11/20/20 03:17 Pulse Oximetry 100 11/20/20 03:17 MDM - Chest Pain MDM Narrative: Medical decision making narrative: Patient presents here with abdominal pain that is been ongoing for months. Her CT scan here is normal. Its likely her gallbladder causing the pain she is actually seeing a surgeon today after she had a HIDA scan that showed gallbladder dysfunction. She has no signs of acute cholecystitis her pain is improved and exam at discharge is benign. Blood work is all normal. She is stable for discharge and is to follow-up as scheduled today. Lab Data: Labs: Lab Results 11/20/20 11/20/20 11/20/20 Range/Units 03:45 03:45 03:45 WBC 7.0 (4.0-10.0) 10^3/ uL RBC 4.45 (4.1-5.3) 10^6/u L Hgb 11.8 (11.5-15.3) g/dL Hct 36.9 L (37.0-47.0) % MCV 82.9 (81-99) fl MCH 26.5 L (28.0-34.0) pg MCHC 32.0 (30.0-36.0) g/dL RDW 14.1 (12.1-15.1) % Plt Count 336 (130-400) 10^3/c mm MPV 10.4 (7.4-10.4) fL Neut % (Auto) 51.0 % Lymph % (Auto) 33.7 % [place] % (Auto) 9.6 % Eos % (Auto) 4.3 % Baso % (Auto) 1.3 % Neut # (Auto) 3.58 (1.8-7.7) 10^3/u L Lymph # (Auto) 2.4 (0.8-4.8) 10^3/u L [place] # (Auto) 0.7 (0.2-0.9) 10^3/u L Eos # (Auto) 0.3 (0.0-0.8) 10^3/u L Baso # (Auto) 0.1 (0.0-0.1) 10^3/u L Nucleated RBC % (a uto) 0 % Nucleated RBCs # 0.0 /100WBC Sodium 138 (136-145) mmol/L Potassium 3.8 (3.5-5.1) mmol/L Chloride 102 (98-107) mmol/L Carbon Dioxide 24 (22-29) mmol/L Anion Gap 15.8 (5-19) BUN 8 (6-20) mg/dL Creatinine 0.7 (0.5-0.9) mg/dL GFR Calculation 89.7 L (90-130) mL/min Glucose 92 (65-115) mg/dL Calculated Osmolal ity 284 L (285-295) mOsm/k g Calcium 9.0 (8.5-10.5) mg/dL Total Bilirubin 0.3 (0.15-1.2) mg/dL AST 17 (0-32) U/L ALT 19 (0-33) U/L Alkaline Phosphata se 74 (35-105) IU/L Troponin T Baselin e 6 (0-10) ng/L Total Protein 7.0 (6.6-8.7) g/dL Albumin 4.5 (3.5-5.2) g/dL Globulin 2.5 (1.3-4.6) g/dL Lipase 54 (13-60) U/L Imaging Data^: CXR: Radiologist's impression: [place] [address] XRay Report Signed Patient: Samra Mejia Unit #: [id number] : 1975 Age/Sex: 45 / F ADM Date: 11/20/20 Loc: ER Room/Bed: Attending Dr: Ordering Provider/Ordering MD: Sekou Pittman MD Date of Service: 11/20/20 Procedure(s): XR chest 1V portable [id number] Accession Number(s): [id number] Report Number: [id number] PROCEDURE INFORMATION: Exam: XR Chest Exam date and time: 11/20/2020 3:59 AM Age: 45 years old Clinical indication: Chest pressure; Patient HX: Chest pain; Additional info: Cp TECHNIQUE: Imaging protocol: XR of the chest. Views: 1 view. COMPARISON: CR XR chest 1V portable [id number] 05/30/2019 6:49 PM FINDINGS: Lungs: Minimal bibasilar atelectasis. No consolidation. Pleural spaces: Unremarkable. No pleural effusion. No pneumothorax. Heart/Mediastinum: Unremarkable. No cardiomegaly. Bones/joints: Unremarkable. XR/XR chest 1V portable [id number] IMPRESSION: No evidence of active cardiopulmonary disease. Dictated By: Everett Wilkerson Signed By: Everett Wilkerson Signed Date/Time: 11/20/2042 DD/ 0540 CT Abd/Pel: Radiologist's impression: [place] [address] CT Scan Report Signed Patient: Samra Mejia Unit #: [id number] : 1975 Age/Sex: 45 / F ADM Date: 11/20/20 Loc: ER Room/Bed: Attending Dr: Ordering Provider/Ordering MD: Sekou Pittman MD Date of Service: 11/20/20 Procedure(s): CT abdomen pelvis w con* [id number] Accession Number(s): [id number] Report Number: [id number] PROCEDURE INFORMATION: Exam: CT Abdomen And Pelvis With Contrast Exam date and time: 11/20/2020 3:35 AM Age: 45 years old Clinical indication: Abdominal pain; Localized; Right upper quadrant (ruq); Prior surgery; Surgery type: Hysterectomy; Patient HX: Ruq/epigastric pain; Additional info: Abd pain TECHNIQUE: Imaging protocol: Computed tomography of the abdomen and pelvis with contrast. Radiation optimization: All CT scans at this facility use at least one of these dose optimization techniques: automated exposure control; mA and/or kV adjustment per patient size (includes targeted exams where dose is matched to clinical indication); or iterative reconstruction. Contrast material: OMNI 300; Contrast volume: 95 ml; Contrast route: INTRAVENOUS (IV); COMPARISON: CT abdomen pelvis w con* [id number] 12/31/2016 2:19 PM RADIATION DOSE METRICS: Total DLP (mGy-cm): 1662.14 FINDINGS: Liver: Normal. No mass. Gallbladder and bile ducts: Tiny gallstone noted. No associated inflammatory changes seen. Pancreas: Normal. No ductal dilation. Spleen: Normal. No splenomegaly. Adrenal glands: Normal. No mass. Kidneys and ureters: Normal. No hydronephrosis. Stomach and bowel: There is diverticulosis without evidence of diverticulitis. Appendix: No evidence of appendicitis. Intraperitoneal space: Unremarkable. No free air. No significant fluid collection. Vasculature: Unremarkable. No abdominal aortic aneurysm. Lymph nodes: Unremarkable. No enlarged lymph nodes. Urinary bladder: Unremarkable as visualized. Reproductive: The uterus is surgically absent. Incidental note is made of a 2.7 cm left ovarian cyst. Bones/joints: Unremarkable. No acute fracture. Soft tissues: Unremarkable. CT/CT abdomen pelvis w con* [id number] IMPRESSION: No acute intra-abdominal or intrapelvic pathology. Radiation Dose CTDIVOL = (mGy): DLP = 1662.14 (mGy-cm) Dictated By: Everett Wilkerson Signed By: Everett Wilkerson Signed Date/Time: 11/20/2040 DD/ EKG Data^: EKG 1: Attestation: I personally reviewed and interpreted this EKG as follows: EKG interpretation date: 11/20/20 EKG interpretation time: 03:29 Interpretation: nsr hr [address] or t wave abnormalities qrs 93 qtc 426 Discharge Plan Discharge Patient Disposition: Home Clinical Impression: Abdominal pain Qualifiers: Abdominal location: upper abdomen, unspecified Qualified Code(s): R10.10 - Upper abdominal pain, unspecified Condition: Stable Prescriptions: No Action famotidine 40 mg tablet 40 mg PO DAILY RF: 0 metronidazole [Flagyl] 500 mg tablet 500 mg PO BID Qty: 14 RF: 0 pantoprazole 40 mg Tablet,Delayed Release (Dr/Ec) 40 mg PO BID RF: 0 alprazolam 1 mg Tablet 0.5 - 1 mg PO BID PRN (Reason: Anxiety) Qty: 0 RF: 0 triamterene-hydrochlorothiazid 37.5-25 mg tablet 1 tab PO DAILY RF: 0 hydrocodone-acetaminophen 5-325 mg Tablet 1 tab PO Q4H PRN (Reason: Moderate To Severe Pain) Qty: 30 RF: 0 Discharge Orders: Discharge ED (Routine); Ordered 11/20/20 Ordered By: Sekou Pittman Referrals: Jeter,MAGALIE Flores [Primary Care Provider] - Discharge Diet: Advance as tolerated Discharge Activity: Resume usual activity Patient Instructions: Abdominal Pain (ED) Coding Level of Care Code ED Double End Production Grinder for Chg Fwd Exam Comprehensive
[2020-11-20] MEDS: sodium chloride 0.9% 1,000 ML 999 ML IV (03:45)
[2020-11-20] MEDS: morphine 4 mg/mL SDV 1 mL IVP (03:46)
[2020-11-20] MEDS: ondansetron 2 mg/ML SDV 2 mL 4 MG IVP (03:46)
[2020-11-20 03:52] VITALS: BP 112/77; PULSE 78; RESP 18; O2SAT 99
[2020-11-20 03:58] LABS: Basophils # 0.1 10^3/uL (0.0-0.1); Basophils % 1.3 %; Eosinophils # 0.3 10^3/uL (0.0-0.8); Eosinophils % 4.3 %; Hematocrit 36.9 % (37.0-47.0); Hemoglobin 11.8 g/dL (11.5-15.3); Lymphocytes # 2.4 10^3/uL (0.8-4.8); Lymphocytes % 33.7 %; Mean Corpuscular Hemoglobin 26.5 pg (28.0-34.0); Mean Corpuscular Volume 82.9 fl (81-99); Mean Platelet Volume 10.4 fL (7.4-10.4); Monocytes # 0.7 10^3/uL (0.2-0.9); Monocytes % 9.6 %; Neutrophils # 3.58 10^3/uL (1.8-7.7); Nucleated Red Blood Cells % 0 %; Platelet Count 336 10^3/cmm (130-400); Red Blood Count 4.45 10^6/uL (4.1-5.3); Red Cell Distribution Width 14.1 % (12.1-15.1)
--- NOTE | 2020-11-20 03:59 | XRR_ITS ---
PROCEDURE INFORMATION: Exam: XR Chest Exam date and time: 11/20/2020 3:59 AM Age: 45 years old Clinical indication: Chest pressure; Patient HX: Chest pain; Additional info: Cp TECHNIQUE: Imaging protocol: XR of the chest. Views: 1 view. COMPARISON: CR XR chest 1V portable [id number] 05/30/2019 6:49 PM FINDINGS: Lungs: Minimal bibasilar atelectasis. No consolidation. Pleural spaces: Unremarkable. No pleural effusion. No pneumothorax. Heart/Mediastinum: Unremarkable. No cardiomegaly. Bones/joints: Unremarkable. XR/XR chest 1V portable [id number] IMPRESSION: No evidence of active cardiopulmonary disease.
[2020-11-20] MEDS: iohexol 300 mg/mL 100 mL Btl IV (04:04)
[2020-11-20 04:15] LABS: Troponin(5th) Baseline 6 ng/L (0-10)
[2020-11-20 04:18] LABS: Alanine Aminotransferase 19 U/L (0-33); Albumin Level 4.5 g/dL (3.5-5.2); Alkaline Phosphatase 74 IU/L (35-105); Anion Gap 15.8 (5-19); Aspartate Amino Transferase 17 U/L (0-32); Blood Urea Nitrogen 8 mg/dL (6-20); Carbon Dioxide 24 mmol/L (22-29); Chloride 102 mmol/L (98-107); Globulin 2.5 g/dL (1.3-4.6); Glomerular Filtration Rate 89.7 mL/min (90-130); Glucose 92 mg/dL (65-115); Lipase 54 U/L (13-60); Osmolality Calculated 284 mOsm/kg (285-295); Potassium 3.8 mmol/L (3.5-5.1); Sodium 138 mmol/L (136-145); Total Bilirubin 0.3 mg/dL (0.15-1.2)
[2020-11-20 04:27] VITALS: RESP 20
[2020-11-20] MEDS: HYDROmorphone 1 mg/mL INJ 1 mL IVP (04:27)
--- NOTE | 2020-11-20 05:35 | ECG_ITS ---
[facility] Test Date: 2020-11-20 Pat Name: Samra Mejia Department: Room: Gender: Female Technical Rep: : 1975 Requested By: Sekou Pittman Order Number: [id number] Mac MD: Elif Hooks M.D. Measurements Intervals [place] Rate: 66 P: 5 ND: 196 QRS: -23 QRSD: 93 T: 11 QT: 413 QTc: 434 Interpretive Statements SINUS RHYTHM BORDERLINE LEFT AXIS DEVIATION [QRS AXIS < -20] MODERATE VOLTAGE CRITERIA FOR LVH, CONSIDER NORMAL VARIANT [MEETS CRITERIA IN ONE OF: R(aVL), S(V1), R(V5), R(V5/V6)+S(V1)] Compared to ECG 05/30/2019 18:41:31 No significant changes Electronically Signed On 11-21-2020 19:23:14 CDT by Elif Hooks M.D. [id number] f
[2020-11-20 05:53] VITALS: BP 107/70; PULSE 69; RESP 18; O2SAT 100
== END 2020-11-20 05:55 | disposition home or self-care (01) ==
PROVIDERS: Emergency Provider Emergency Medicine; PCP Nurse Practitioner Family
DX: R10.10 Upper abdominal pain, unspecified (principal); Z87.891 Personal history of nicotine dependence
CPT/HCPCS: 71045; 74177; 80053; 83690; 84484; 85025; 93005; 96361; 96374; 96375; 99284; J1170; J2270; J2405; J7030; Q9967

== ENCOUNTER → 2021-01-22 16:24 | Outpatient (BNVA) | payer OTHER, SELFPAY | PROVIDERS: PCP Nurse Practitioner Family; Visit Provider Obstetrics & Gynecology | DX: R39.9 Unspecified symptoms and signs involving the genitourinary system (principal) | CPT/HCPCS: 81000 ==

== ENCOUNTER 2021-03-20 13:27 | Outpatient (CLI) | payer OTHER, SELFPAY ==
--- NOTE | 2021-03-20 13:36 | MM_ITS ---
WS: [id number] BILATERAL DIGITAL SCREENING MAMMOGRAPHY WITH CAD CLINICAL INFORMATION: SCREENING HISTORY: Screening mammogram. No current complaints. COMPARISON: April 07, 2016 TECHNIQUE: Bilateral CC and MLO views. FINDINGS: Scattered fibroglandular densities bilaterally. No suspicious focal mass, asymmetry, calcifications, or architectural distortion. No evidence of malignancy. MM/[place] [id number] IMPRESSION: BI-RADS: 1-Negative FOLLOW UP: 1 Year Follow-up Recommend return to annual screening mammography.
== END 2021-03-20 13:28 | disposition home or self-care (01) ==
LOC: RADSHAW 13:33
PROVIDERS: PCP Nurse Practitioner Family; Visit Provider Family Medicine
DX: Z12.31 Encounter for screening mammogram for malignant neoplasm of breast (principal)
CPT/HCPCS: 77067

== ENCOUNTER 2021-12-29 16:10 | Emergency (ER) | payer OTHER, SELFPAY ==
[2021-12-29 17:20] VITALS: BP 119/82; PULSE 69; RESP 18; TEMP 36.6; O2SAT 100; BMI 30.7
[2021-12-29 18:06] LABS: Add Urine Microscopic? NO; Charge for UA Resulting for Rev
[2021-12-29 18:17] LABS: Bilirubin Urine Neg (Negative); Blood Urine Neg (Negative); Glucose Urine UA Norm (Normal); Ketones Urine Negative (Negative); Leukocyte Esterase Urine Negative (Negative); Nitrate Urine Negative (Negative); Protein Urine Neg (Negative); Urine Appearance Clear (CLEAR); Urine Color Yellow (Yellow); Urobilinogen Urine Norm (Negative); pH Urine 6.5 (5-7)
--- NOTE | 2021-12-29 19:13 | CTR_ITS ---
PROCEDURE INFORMATION: Exam: CT Abdomen And Pelvis With Contrast Exam date and time: 12/29/2021 7:23 PM Age: 46 years old Clinical indication: Abdominal pain; Generalized; Additional info: Abd pain TECHNIQUE: Imaging protocol: Computed tomography of the abdomen and pelvis with contrast. Radiation optimization: All CT scans at this facility use at least one of these dose optimization techniques: automated exposure control; mA and/or kV adjustment per patient size (includes targeted exams where dose is matched to clinical indication); or iterative reconstruction. Contrast material: OMNIPAQUE 350; Contrast volume: 95 ml; Contrast route: INTRAVENOUS (IV); COMPARISON: CT abdomen pelvis w con* [id number] 11/20/2020 4:00 AM RADIATION DOSE METRICS: Total DLP (mGy-cm): 670.86 FINDINGS: Liver: Normal. No mass. Gallbladder and bile ducts: Cholecystectomy. No ductal dilation. Pancreas: Normal. No ductal dilation. Spleen: Normal. No splenomegaly. Adrenal glands: Normal. No mass. Kidneys and ureters: Normal. No hydronephrosis. Stomach and bowel: Unremarkable. No obstruction. No mucosal thickening. Appendix: No evidence of appendicitis. Intraperitoneal space: Unremarkable. No free air. No significant fluid collection. Vasculature: Unremarkable. No abdominal aortic aneurysm. Lymph nodes: Unremarkable. No enlarged lymph nodes. Urinary bladder: Unremarkable as visualized. Reproductive: Hysterectomy. Bones/joints: No acute fracture. Soft tissues: Unremarkable. CT/CT abdomen pelvis w con* [id number] IMPRESSION: No acute findings.
--- NOTE | 2021-12-29 19:15 | W.ED.ABDPA2 ---
HPI - Abdominal Pain General: Chief Complaint: Abdominal Pain Stated Complaint: Possible appy Time Seen by Provider: 12/29/21 19:06 Source: patient Mode of arrival: ambulatory Limitations: no limitations History of Present Illness: 46-year-old female states she has been having abdominal pain since that he take. States is diffuse in nature but seems to be worse in the epigastric region. States it does seem to be worse with eating as well. She rates her pain a 4 out of 10 currently she had nausea denies vomiting or diarrhea. She has had a hysterectomy and a cholecystectomy in the past. Associated Symptoms: Reports nausea; Denies chills, dysuria and fever(s) Review of Systems Const: Denies: fever(s), chills, body aches or change in appetite Eyes: Denies: blurry vision or eye discomfort ENMT: Denies: throat pain or dental pain Card: Denies: chest pain Resp: Denies: dyspnea GI: Reports: abdominal pain and nausea : Denies: dysuria Musc: Denies: neck pain or back pain Skin/Breast: Denies: rash Neuro: Denies: headache(s) Psych: Denies: depression Santi/Lymph: Denies: easy bruising All/Imm: Denies: urticaria PFSH ED PFSH: Surgical History History of cholecystectomy Family History Grandmother Diabetes Father Diabetes Hyperlipidemia Hypertension Mother Hypertension Denies family history of Colon cancer Ovarian cancer Clotting disorder Bleeding disorder Uterine cancer Stroke Social History Smoking and tobacco status: former smoker Physical Exam Const: COMMON NORMALS: no acute distress, patient oriented x3 and healthy appearing HENMT: COMMON NORMALS: normocephalic and atraumatic HEAD & SCALP: normocephalic and atraumatic Eye: COMMON NORMALS: Equal, round and reactive pupils present and EOMs intact bilaterally PUPIL: Yes Equal, round and reactive pupils present Neck/C-Spine: COMMON NORMALS: full ROM and supple Chest: COMMONS NORMALS: normal inspection of the chest and normal palpation of entire chest wall Resp: COMMON NORMALS: normal respiratory effort, No retractions, No use of accessory muscles and clear to auscultation bilaterally AUSCULTATION: clear to auscultation bilaterally Cardio: COMMON NORMALS: regular rate, regular rhythm and No murmurs present (Cardio) RATE: regular rate RHYTHM: regular rhythm GI: COMMON NORMALS: Normal to inspection, nondistended, normoactive bowel sounds present, Soft to palpation and no masses PALPATION: Yes Soft to palpation OTHER: diffuse tenderness Extremity: COMMON NORMALS: normal to inspection and full ROM Neuro: COMMON NORMALS: patient oriented x3, moves all extremities and no focal motor deficits Psych: COMMON NORMALS: mental status grossly normal, Normal thought process present and cooperative THOUGHT PROCESS: Normal thought process present Skin: COMMON NORMALS: no rashes or lesions noted and no wounds GENERAL SKIN EXAM: no rashes or lesions noted Course Vital Signs: Vital signs: Vital Signs Temperature 97.8 F 12/29/21 17:20 Pulse Rate 69 12/29/21 19:43 Respiratory Rate 18 12/29/21 19:43 Blood Pressure 106/92 12/29/21 19:43 Pulse Oximetry 100 12/29/21 19:43 Oxygen Delivery Me thod 12/29/21 19:43 MDM - Abdominal Pain Medical Decision Making Patient presents here with abdominal pain history consistent with a likely gastritis abdominal pain labs and CT her abdomen here are normal she is stable for discharge we will prescribe her Reglan she takes PPIs. She is to follow-up with surgery return if worsening. Lab Data : 12/29/21 19:13 12/29/21 19:13 Labs/Radiology: Radiology Impressions Abdomen/Pelvis CT 12/29/21 19:13 IMPRESSION: No acute findings. Laboratory Results WBC 6.5 10^3/uL (4.0-10.0) 12/29/21 19:13 RBC 4.73 10^6/uL (4.1-5.3) 12/29/21 19:13 Hgb 11.4 g/dL (11.5-15.3) L 12/29/21 19:13 Hct 36.5 % (37.0-47.0) L 12/29/21 19:13 MCV 77.2 fl (81-99) L 12/29/21 19:13 MCH 24.1 pg (28.0-34.0) L 12/29/21 19:13 MCHC 31.2 g/dL (30.0-36.0) 12/29/21 19:13 RDW 14.7 % (12.1-15.1) 12/29/21 19:13 Plt Count 308 10^3/cmm (130-400) 12/29/21 19:13 MPV 10.5 fL (7.4-10.4) H 12/29/21 19:13 Neut % (Auto) 47.9 % 12/29/21 19:13 Lymph % (Auto) 39.6 % 12/29/21 19:13 [place] % (Auto) 7.3 % 12/29/21 19:13 Eos % (Auto) 3.5 % 12/29/21 19:13 Baso % (Auto) 1.5 % 12/29/21 19:13 Neut # (Auto) 3.13 10^3/uL (1.8-7.7) 12/29/21 19:13 Lymph # (Auto) 2.6 10^3/uL (0.8-4.8) 12/29/21 19:13 [place] # (Auto) 0.5 10^3/uL (0.2-0.9) 12/29/21 19:13 Eos # (Auto) 0.2 10^3/uL (0.0-0.8) 12/29/21 19:13 Baso # (Auto) 0.1 10^3/uL (0.0-0.1) 12/29/21 19:13 Nucleated RBC % (auto) 0 % 12/29/21 19:13 Nucleated RBCs # 0.0 /100WBC 12/29/21 19:13 Sodium 141 mmol/L (136-145) 12/29/21 19:13 Potassium 3.7 mmol/L (3.5-5.1) 12/29/21 19:13 Chloride 101 mmol/L (98-107) 12/29/21 19:13 Carbon Dioxide 27 mmol/L (22-29) 12/29/21 19:13 Anion Gap 16.7 (5-19) 12/29/21 19:13 BUN 9 mg/dL (6-20) 12/29/21 19:13 Creatinine 0.7 mg/dL (0.5-0.9) 12/29/21 19:13 GFR Calculation 89.3 mL/min (90-130) L 12/29/21 19:13 Glucose 85 mg/dL (65-115) 12/29/21 19:13 Calculated Osmolality 290 mOsm/kg (285-295) 12/29/21 19:13 Calcium 9.8 mg/dL (8.5-10.5) 12/29/21 19:13 Total Bilirubin 0.3 mg/dL (0.15-1.2) 12/29/21 19:13 AST 19 U/L (0-32) 12/29/21 19:13 ALT 18 U/L (0-33) 12/29/21 19:13 Alkaline Phosphatase 82 U/L (35-105) 12/29/21 19:13 Total Protein 8.0 g/dL (6.6-8.7) 12/29/21 19:13 Albumin 4.7 g/dL (3.5-5.2) 12/29/21 19:13 Globulin 3.3 g/dL (1.3-4.6) 12/29/21 19:13 Lipase 76 U/L (13-60) H 12/29/21 19:13 Urine Color Yellow (Yellow) 12/29/21 17:43 Urine Appearance Clear (CLEAR) 12/29/21 17:43 Urine pH 6.5 (5-7) 12/29/21 17:43 Ur Specific [place] 1.010 (1.005-1.030) 12/29/21 17:43 Urine Protein Neg (Negative) 12/29/21 17:43 Urine Glucose (UA) Norm (Normal) 12/29/21 17:43 Urine Ketones Negative (Negative) 12/29/21 17:43 Urine Blood Neg (Negative) 12/29/21 17:43 Urine Nitrate Negative (Negative) 12/29/21 17:43 Urine Bilirubin Neg (Negative) 12/29/21 17:43 Urine Urobilinogen Norm mg/dL (Negative) 12/29/21 17:43 Ur Leukocyte Esterase Negative (Negative) 12/29/21 17:43 Discharge Plan Discharge Patient Disposition: Home Clinical Impression: Abdominal pain Qualifiers: Abdominal location: generalized Qualified Code(s): R10.84 - Generalized abdominal pain Condition: Stable Prescriptions: New Reglan 10 mg tablet 10 mg PO Q6H PRN (Reason: nausea and vomiting) Qty: 20 0RF No Action famotidine 40 mg tablet 40 mg PO DAILY valacyclovir 1 gram tablet 1,000 mg PO TID 7 Days Qty: 21 3RF venlafaxine [Effexor XR] 37.5 mg capsule,extended release 24hr 37.5 mg PO DAILY Qty: 7 0RF Rx Instructions: start 37.5 mg X 1 week, then increase to 75 mg daily hydroxyzine pamoate 50 mg capsule See Rx Instructions PO BID PRN (Reason: itching) Qty: 45 2RF Rx Instructions: 1-2 caps, BID, as need for anxiety or sleep bupropion HCl [Wellbutrin XL] 150 mg tablet extended release 24 hr 150 mg PO QAM Qty: 30 2RF escitalopram oxalate [Lexapro] 20 mg tablet 20 mg PO DAILY Qty: 30 2RF Ozempic 0.25 mg or 0.5 mg(2 mg/1.5 mL) pen injector 0.5 mg SUBCUT .once weekly 30 Days Qty: 1.5 2RF Rx Instructions: 340B acyclovir 800 mg tablet 800 mg PO .five times a day Qty: 35 0RF pantoprazole 40 mg Tablet,Delayed Release (Dr/Ec) 40 mg PO BID alprazolam 1 mg Tablet 0.5 - 1 mg PO BID PRN (Reason: Anxiety) Qty: 0 triamterene-hydrochlorothiazid 37.5-25 mg tablet 1 tab PO DAILY Discharge Orders: Discharge ED (Routine); Ordered 12/29/21 Ordered By: Sekou Pittman Referrals: Anthony Yip MD [Physician] - 1-3 days Jeter,MAGALIE Flores [Primary Care Provider] - Discharge Diet: Advance as tolerated Discharge Activity: Resume usual activity Patient Instructions: Abdominal Pain (ED) Coding Level of Care Code ED Roof Fixer for Chg Fwd Exam Comprehensive
--- NOTE | 2021-12-29 19:20 | PC.NURSE ---
patient transported to CT scan
[2021-12-29 19:23] LABS: Basophils # 0.1 10^3/uL (0.0-0.1); Basophils % 1.5 %; Eosinophils # 0.2 10^3/uL (0.0-0.8); Eosinophils % 3.5 %; Hematocrit 36.5 % (37.0-47.0); Hemoglobin 11.4 g/dL (11.5-15.3); Lymphocytes # 2.6 10^3/uL (0.8-4.8); Lymphocytes % 39.6 %; Mean Corpuscular HGB Conc 31.2 g/dL (30.0-36.0); Mean Corpuscular Hemoglobin 24.1 pg (28.0-34.0); Mean Corpuscular Volume 77.2 fl (81-99); Mean Platelet Volume 10.5 fL (7.4-10.4); Monocytes # 0.5 10^3/uL (0.2-0.9); Monocytes % 7.3 %; Neutrophils # 3.13 10^3/uL (1.8-7.7); Neutrophils % 47.9 %; Nucleated Red Blood Cells % 0 %; Platelet Count 308 10^3/cmm (130-400); Red Blood Count 4.73 10^6/uL (4.1-5.3); Red Cell Distribution Width 14.7 % (12.1-15.1); White Blood Count 6.5 10^3/uL (4.0-10.0)
[2021-12-29] MEDS: iohexol 350 mg/mL 100 mL Btl IV (19:30)
[2021-12-29] MEDS: sodium chloride 0.9% 1,000 ML 999 ML IV (19:40)
[2021-12-29 19:41] VITALS: RESP 16; O2SAT 100
[2021-12-29] MEDS: ondansetron 2 mg/ML SDV 2 mL 4 MG IVP (19:41)
[2021-12-29] MEDS: HYDROmorphone 1 mg/mL INJ 1 mL 0.5 MG IVP (19:41)
[2021-12-29 19:43] VITALS: BP 106/92; PULSE 69; RESP 18; O2SAT 100
[2021-12-29 19:44] LABS: Alanine Aminotransferase 18 U/L (0-33); Albumin Level 4.7 g/dL (3.5-5.2); Alkaline Phosphatase 82 U/L (35-105); Anion Gap 16.7 (5-19); Aspartate Amino Transferase 19 U/L (0-32); Blood Urea Nitrogen 9 mg/dL (6-20); Calcium 9.8 mg/dL (8.5-10.5); Carbon Dioxide 27 mmol/L (22-29); Chloride 101 mmol/L (98-107); Globulin 3.3 g/dL (1.3-4.6); Glomerular Filtration Rate 89.3 mL/min (90-130); Glucose 85 mg/dL (65-115); Lipase 76 U/L (13-60); Osmolality Calculated 290 mOsm/kg (285-295); Potassium 3.7 mmol/L (3.5-5.1); Sodium 141 mmol/L (136-145); Total Bilirubin 0.3 mg/dL (0.15-1.2)
[2021-12-29 20:53] VITALS: BP 112/74; PULSE 69; RESP 17; O2SAT 99
--- NOTE | 2021-12-30 13:01 | DCPLANNER ---
Addendum entered by Ailyn Beltrán 01/27/22 15:21: Patient had a follow up appointment scheduled for 01.05.[address] Santos at general surgery - patient did attend appointment. Original Note: public policy manager had message to schedule a follow up appointment for patient with general surgery. public policy manager sent patients information to the front office staff at general surgery. Clinic will call patient with appointment information.
== END 2021-12-29 20:56 | disposition home or self-care (01) ==
PROVIDERS: Family Medicine; Emergency Provider Emergency Medicine; PCP Nurse Practitioner Family
DX: R10.84 Generalized abdominal pain (principal)
CPT/HCPCS: 74177; 80053; 81003; 83690; 85025; 96361; 96374; 96375; 99285; J1170; J2405; J7030; Q9967

== ENCOUNTER 2022-01-08 06:32 | Day surgery (SDC) | payer OTHER, SELFPAY ==
[2022-01-06 12:29] VITALS: BMI 30.9
[2022-01-08 06:56] VITALS: BP 120/86; PULSE 82; RESP 18; TEMP 36.1; O2SAT 97
[2022-01-08] MEDS: sodium chloride 0.9% 1,000 ML 30 ML IV (07:24)
--- NOTE | 2022-01-08 07:37 | W.PM.OPSUD ---
Surgery/Procedure H&P Update DATE OF PROCEDURE: January 08, 2022 DATE H&P PERFORMED: 01/05/22 PREOP DIAGNOSIS: GERD PLANNED PROCEDURE: Operation Date: 01/08/22 08:00 Proposed Procedures p EGD [id number],K21.9(Not Applicable) - Kike Santos DO
--- NOTE | 2022-01-08 07:38 | ANES.PREANE2 ---
Pre-Anesthetic Assessment Height/Weight: Height 1.63 m Weight 81.647 kg Temp Pulse Resp BP Pulse Ox O2 Del Method 97.0 F L 82 18 120/86 97 01/08/22 06:56 01/08/22 06:56 01/08/22 06:56 01/08/22 06:56 01/08/22 06:56 01/08/22 06:56 Preop Diagnosis: GERD Operation Date: 01/08/22 08:00 Proposed Procedures p EGD [id number],K21.9(Not Applicable) - Kike Santos DO Familial anesthetic complications: none Was Beta Lauren taken within 24 hours: N/A Was Clonidine taken within 24 hours: N/A Last intake: Intake Last Liquid Date 01/07/22 Last Liquid Time 23:30 Last Solid Date 01/07/22 Last Intake: 23:30 Social No alcohol and No tobacco Exam alert, oriented x 3, clear to auscultation bilaterally and regular rate & rhythm Airway Submandibular: within normal limits Cervical ROM: within normal limits Mallampati: Class II Dentition: full Pulmonary None reported CV/HEM Hypertension None reported Hepatic None reported GI Gastroesophageal Reflux Disease Metabolic None reported Musc/skel Lower Back Pain Neuropsych Anxiety and Headache Anesthetic Plan ASA status: 2 Anesthesia: MAC Medications/Allergies Home Medications Medication Instructions Recorded Confirmed Last Taken Type alprazolam 1 mg tablet 0.5 - 1 mg PO BID PRN Anxiety ##0 05/30/19 01/08/22 01/07/22 History triamterene 37.5 1 tab PO DAILY 05/30/19 01/08/22 01/07/22 History mg-hydrochlorothiazide 25 mg tablet famotidine 40 mg tablet 40 mg PO DAILY 09/24/20 01/08/22 01/06/22 History pantoprazole 40 mg tablet,delayed 40 mg PO BID 11/02/20 01/08/22 01/07/22 History release hydroxyzine pamoate 50 mg capsule 50 - 100 mg PO BID PRN itching 01/06/22 01/08/22 01/07/22 History Allergies Allergy/AdvReac Type Severity Reaction Status Date / Time No Known Allergies Allergy Verified 01/08/22 06:54 Current Medications Generic Name Dose Route Start Last Admin Trade Name Freq PRN Reason Stop Dose Admin Sodium Chloride 1,000 mls @ 30 mls/hr 01/08/22 07:00 01/08/22 07:24 Sodium Chloride 0.9% IV 01/09/22 06:59 30 mls/hr .Q24H CARMEN Administration PFSH Anesthesia Medical History (Updated 01/06/22 @ 00:01 by ) GERD (gastroesophageal reflux disease) Surgical History History of cholecystectomy Hx of colonoscopy with polypectomy Hx of hysterectomy Family History Grandmother Diabetes Father Diabetes Hyperlipidemia Hypertension Mother Hypertension Denies family history of Colon cancer Ovarian cancer Clotting disorder Bleeding disorder Uterine cancer Stroke Social History Smoking and tobacco status: never smoked Data Anesthesia Cardiac Studies: No Data to Display
[2022-01-08 08:25] VITALS: BP 104/74; PULSE 80; RESP 16; TEMP 36.1; O2SAT 99
[2022-01-08 08:38] VITALS: BP 105/76; PULSE 71; RESP 18; O2SAT 99
--- NOTE | 2022-01-08 14:18 | ANE.PACU2 ---
Inpatient post-anesthesia follow up: Airway intact: Yes Vital signs: Temperature 97 F Pulse Rate 71 Respiratory Rate 18 Blood Pressure 105/76 Pulse Oximetry 99 Oxygen Delivery Me thod Room Air Oxygen Flow Rate 2 Fraction of Inspir ed Oxygen Hydration adequate: Yes Nausea and vomiting: No Pain level: 1 Mental status: Baseline
== END 2022-01-08 08:52 | disposition home or self-care (01) ==
PROVIDERS: PCP Nurse Practitioner Family; Visit Provider Surgery
PROC: 0DJ08ZZ Inspection of Upper Intestinal Tract, Via Natural or Artificial Opening Endoscopic (ICD-10-PCS; CPT 43235; principal; 2022-01-08 08:00)
DX: K21.9 Gastro-esophageal reflux disease without esophagitis (principal); K29.50 Unspecified chronic gastritis without bleeding; I10 Essential (primary) hypertension; F41.9 Anxiety disorder, unspecified
CPT/HCPCS: 43239; 88305; 88342; J7030

== ENCOUNTER 2022-04-30 09:19 | Outpatient (CLI) | payer OTHER, SELFPAY ==
--- NOTE | 2022-04-30 09:31 | MM_ITS ---
WS: [id number] VIEWS: MLO and CC views both breasts. 3D digital tomosynthesis is also included in this exam. Comparison made with prior exam of 12/20/2013, 02/04/2015, 04/07/2016, 03/20/2021,. Findings: There was no sign of mass, architectural distortion or suspicious calcification in either breast. Sc attered fibroglandular densities MM/[place] [id number] Impression: BI-RADS: 2-Benign FOLLOW-UP: 1 Year Follow-up This mammogram was also analyzed by the Computer Aided Detection System R2 Imag e Distribution Engineer.
== END 2022-04-30 09:20 | disposition home or self-care (01) ==
LOC: RAD 09:22
PROVIDERS: PCP Nurse Practitioner Family; Visit Provider Nurse Practitioner Family
DX: Z12.31 Encounter for screening mammogram for malignant neoplasm of breast (principal)
CPT/HCPCS: 77063; 77067

== ENCOUNTER 2023-02-21 08:05 | Outpatient (CLI) | payer OTHER, SELFPAY ==
--- NOTE | 2023-02-21 08:12 | CT_ITS ---
WS: [id number] CT ABDOMEN AND PELVIS NONCONTRAST HISTORY: GENERALIZED ABDOMINAL PAIN TECHNIQUE: Imaging performed through the abdomen and pelvis. Coronal and sagittal reformats are submi tted. All CT scans at [facility] use at least one of these dose optimization techniques: auto mated exposure control; mA and/or kV adjustment per patient size (includes targeted exams where dose is matched to clinical indication); or iterative reconstruction. DLP: 579.30 mGy.cm COMPARISON: 12/29/2021 Lower thorax: Lung bases are clear. Visualized heart is normal. No hiatal hernia. Liver: The entire liver was not included. Very superior liver has not been imaged. Otherwise negative . Gallbladder: Prior cholecystectomy. Pancreas: Normal size and attenuation. Normal pancreatic duct. No pancreatitis or mass. Spleen: Normal. Adrenal glands: Normal. No mass. Right kidney: Very small extrarenal pelvis. No obstruction. Ureters are normal caliber. No calyceal d ilatation. Left kidney: Small extrarenal pelvis. No calyceal dilatation. Distal ureter is normal size. Aorta: Normal abdominal aorta, no aneurysm or atherosclerosis. No free fluid, intraperitoneal air or significant lymphadenopathy. GI tract: Normal noncontrast imaging of the stomach, small bowel and colon. No obstruction or wall th ickening. Normal appendix. Abdominal wall: Very tiny umbilical hernia. Pelvis: Prior hysterectomy. Urinary bladder is negative. No mass or adenopathy. Osseous structures: RIGHT femoral head osteonecrosis. Diffuse disc bulging and facet arthritis at L4- 5 with a component of central and bilateral subarticular recess stenosis. IMPRESSION: 1. No abnormality in the LEFT lower quadrant. There is no obstructive pattern of the GI tract or sig nificant diverticular disease. If symptoms persist evaluation by colonoscopy may provide additional i nformation. 2. Normal appendix. 3. Prior cholecystectomy and hysterectomy. 4. No ascites or adenopathy. 5. RIGHT femoral head osteonecrosis.
[2023-02-21] MEDS: iohexol 350 mg/mL 500 mL Btl (per mL) PO (09:26)
== END 2023-02-21 08:06 | disposition home or self-care (01) ==
LOC: RAD 08:05
PROVIDERS: PCP Nurse Practitioner Family; Visit Provider Nurse Practitioner Family
DX: R10.84 Generalized abdominal pain (principal); Z90.49 Acquired absence of other specified parts of digestive tract; Z90.710 Acquired absence of both cervix and uterus; M87.9 Osteonecrosis, unspecified
CPT/HCPCS: 74176; Q9967

== ENCOUNTER 2023-05-17 15:49 | Outpatient (CLI) | payer OTHER, SELFPAY ==
--- NOTE | 2023-05-17 16:00 | MM_ITS ---
WS: [id number] BILATERAL 3D TOMOSYNTHESIS DIGITAL SCREENING MAMMOGRAPHY WITH CAD CLINICAL INFORMATION: SCREENING HISTORY: Screening mammogram. No current complaints. COMPARISON: 2022 TECHNIQUE: Bilateral CC and MLO views. FINDINGS: The breasts are composed of heterogeneous fibroglandular density tissue, which can limit the detectio n of small underlying mass lesions. No suspicious mass, asymmetry, calcifications, or architectural d istortion. No evidence of malignancy. IMPRESSION: MM/[place] [id number] BI-RADS: 1-Negative FOLLOW UP: 1 Year Follow-up Recommend return to annual screening mammography.
== END 2023-05-17 15:50 | disposition home or self-care (01) ==
LOC: MOBLMAM 16:20
PROVIDERS: PCP Family Medicine; Visit Provider Family Medicine
DX: Z12.31 Encounter for screening mammogram for malignant neoplasm of breast (principal)
CPT/HCPCS: 77063; 77067

== ENCOUNTER 2023-09-25 18:57 | Emergency (ER) | payer BC, MEDICAID, SELFPAY ==
[2023-09-25 19:37] VITALS: BP 133/83; PULSE 75; RESP 17; TEMP 36.2; O2SAT 97; BMI 33.6
--- NOTE | 2023-09-25 19:47 | ED_ITS ---
HPI - Eye Problem General: Chief complaint: Eye Problems Stated complaint: shingles on facen now pain in eye Time Seen by Provider: 09/25/23 19:47 History of Present Illness: 48-year-old female comes in today with c omplaints of shingles outbreak. Patient has developed a rash to the left facial cheek. Patient reports some eye discomfort. Patient was called in a prescription for acyclovir 400 mg 3 times a day and a Medrol Dosepak on . Patient has been taking the medication but has had worsening symptoms. Patient appears nontoxic. Patient appears in moderate pain. Review of Systems General: Reports: 10 or more systems reviewed and unremarkable except in HPI and below Skin/Breast: Reports: rash PFSH ED 2 PFSH: Medical History Gastritis GERD (gastroesophageal reflux disease) Surgical History History of cholecystectomy Hx of colonoscopy with polypectomy Hx of hysterectomy Family History Grandmother Diabetes Father Diabetes Hyperlipidemia Hypertension Mother Hypertension Denies family history of Colon cancer Ovarian cancer Clotting disorder Bleeding disorder Uterine cancer Stroke Social History Smoking and tobacco/nicotine status: never used tobacco/nicotine Physical Exam Const: COMMON NORMALS: alert HENMT: COMMON NORMALS: normocephalic HEAD & SCALP: normocephalic FACE & SINUS: other (Vesicular eruption left facial cheek) Neck/C-Spine: COMMON NORMALS: full ROM Resp: COMMON NORMALS: normal respiratory effort and clear to auscultation bilaterally AUSCULTATION: clear to auscultation bilaterally Cardio: COMMON NORMALS: regular rate and regular rhythm RATE: regular rate RHYTHM: regular rhythm GI: COMMON NORMALS: Soft to palpation and non-tender PALPATION: Yes Soft to palpation Extremity: COMMON NORMALS: normal to inspection Neuro: SENSORIUM/ORIENTATION: Yes alert Skin: RASHES: other (Vesicular eruption left side of face) Course Vital Signs: Vital signs: Vital Signs Temperature 97.2 F L 09/25/23 19:37 Pulse Rate 75 09/25/23 19:37 Respiratory Rate 17 09/25/23 19:37 Blood Pressure 133/83 09/25/23 19:37 Pulse Oximetry 97 09/25/23 19:37 Oxygen Delivery Me thod Room Air 09/25/23 19:37 MDM - Eye Problem Medical Decision Making 48-year-old female comes in today for complaints of rash with pain to the left side of face. Patient appears nontoxic. Patient reports some eye discomfort with it. Differential diagnosis includes not limited to herpes zoster, herpes simplex, contact dermatitis. Patient appears to have a shingles eruption. Will start patient on appropriate dosing for valacyclovir 1000 mg 3 times a day. Patient was also instructed to continue with the steroids as directed. Patient was given some prednisolone eyedrops for her eye. Patient was given hydrocodone to help with pain. Patient reports understanding of care plan need for follow- up or return to the ER. No radiology studies performed this visit Discharge Plan Discharge Patient Disposition: Home Clinical Impression: Shingles outbreak Qualifiers: Herpes zoster complications: without complications Qualified Code(s): B02.9 - Zoster without complications Condition: Stable Prescriptions: New valacyclovir 1 gram tablet 1,000 mg PO Q8H 7 Days Qty: 21 0RF prednisolone acetate 1 % drops,suspension 1 drp ophthalmic (eye) TID 7 Days Qty: 5 0RF hydrocodone-acetaminophen 5-325 mg tablet 1 tab PO Q6H PRN (Reason: pain) Qty: 12 0RF Rx Instructions: dx: shingles No Action sucralfate [Carafate] 1 gram tablet 1 g PO TID Qty: 90 0RF fexofenadine-pseudoephedrine [Amaya-D 12 Hour] 60-120 mg tablet extended release 12 hr 1 tab PO Q12H PRN (Reason: allergy symptoms) Qty: 30 0RF venlafaxine [Effexor XR] 75 mg capsule,extended release 24hr 75 mg PO DAILY amoxicillin-pot clavulanate 875-125 mg tablet 1 tab PO BID 10 Days Qty: 20 0RF fluconazole [Diflucan] 150 mg tablet 150 mg PO Q3D Qty: 2 0RF Rx Instructions: may repeat second dose 72 hrs after first dose if symptoms persist pantoprazole 40 mg Tablet,Delayed Release (Dr/Ec) 40 mg PO BID triamterene-hydrochlorothiazid 37.5-25 mg tablet 1 tab PO DAILY Discharge Orders: Discharge ED (Routine); Ordered 09/25/23 Ordered By: Russell Reyes Referrals: Madai Dunbar APN [Primary Care Provider] - Discharge Diet: Usual diet Discharge Activity: Increase activity as tolerated Patient Instructions: Opioid Safety, Pain Management Coding Level of Care Code ED Incident Response Manager for Kesha Scott
[2023-09-25] MEDS: valACYclovir 1,000 mg Tablet 1000 MG PO (20:19)
[2023-09-25] MEDS: dexamethasone 10 mg/mL INJ IM (20:21)
[2023-09-25 20:24] VITALS: BP 128/81; PULSE 71; RESP 16; TEMP 36.2; O2SAT 98
== END 2023-09-25 20:21 | disposition home or self-care (01) ==
PROVIDERS: Emergency Provider Nurse Practitioner Family; PCP Nurse Practitioner Family
DX: B02.9 Zoster without complications (principal)
CPT/HCPCS: 96372; 99284; J1100

== ENCOUNTER → 2023-11-04 17:00 | Outpatient (BNVA) | payer BC, MEDICAID, SELFPAY | PROVIDERS: PCP Nurse Practitioner Family; Visit Provider Registered Nurse Neonatal Intensive Care | DX: J02.9 Acute pharyngitis, unspecified (principal) | CPT/HCPCS: 87880 ==

== ENCOUNTER 2024-04-07 06:30 | Outpatient (RCR) | payer BC, MEDICAID, SELFPAY | END 2024-05-04 23:59 | disposition home or self-care (01) | LOC: APT 06:30 | PROVIDERS: Visit Provider Orthopaedic Surgery | DX: M54.50 Low back pain, unspecified (principal); M72.2 Plantar fascial fibromatosis | CPT/HCPCS: 97110; 97140; 97161 ==

== ENCOUNTER 2024-05-05 06:00 | Outpatient (RCR) | payer BC, MEDICAID, SELFPAY | END 2024-06-04 23:59 | disposition home or self-care (01) | LOC: APT 06:00 | PROVIDERS: Visit Provider Orthopaedic Surgery | DX: M54.50 Low back pain, unspecified (principal); M72.2 Plantar fascial fibromatosis | CPT/HCPCS: 97110; 97140; 97530 ==

== ENCOUNTER 2024-06-05 06:00 | Outpatient (RCR) | payer BC, MEDICAID, SELFPAY | END 2024-07-04 23:59 | disposition home or self-care (01) | LOC: APT 06:00 | PROVIDERS: Visit Provider Orthopaedic Surgery | DX: M54.50 Low back pain, unspecified (principal); M72.2 Plantar fascial fibromatosis | CPT/HCPCS: 97110; 97140; 97530 ==

== ENCOUNTER 2024-12-01 03:11 | Emergency (ER) | payer BC, MEDICAID, SELFPAY ==
--- OUTSIDE RECORDS SUMMARY | 2024-12-01 03:16 | XMS_ITS | Clinical Summary ---
Author Organization [facility] Address [address] Naqvi: Epic Prelude ADT [place] [id number] Care Team Providers Care Hotel Concierge Name Role Phone Corona, Sandra Christopher APN Primary Care Provider Allergies No known active allergies Medications tamsulosin (FLOMAX) 0.4 mg capsule Take 0.4 mg by mouth daily. Active triamterene (DYRENIUM) 100 mg capsule Take 100 mg by mouth 2 times daily. Active Active Problems No known active problems Family History Medical History Relation Name Comments Diabetes Father Hypertension Father Breast Cancer Maternal Grandmother Respiratory Disease Mother Ovarian Cancer Neg Hx Relation Name Status Comments Father Alive Maternal Grandmother Mother Alive Social History Tobacco Use Types Packs/Day Years Used Date Smoking Tobacco: Every Day Alcohol Use Standard Drinks/Week Comments Never 0 (1 standard drink = 0.6 oz pur e alcohol) Comments No Sex and Gender Information Value Date Recorded Sex Assigned at Not on file Legal Sex Female 6:12 AM DATA ABSTRACTOR Gender Identity Not on file Sexual Orientation Not on file Last Filed Vital Signs Vital Sign Reading Time Taken Comments Blood Pressure 122/80 02/01/2023 1:08 PM DATA ABSTRACTOR Pulse - - Temperature - - Respiratory Rate - - Oxygen Saturation - - Inhaled Oxygen Concentration - - Weight 89.8 kg (198 lb) 02/01/2023 1:08 PM DATA ABSTRACTOR Height 165.1 cm (5' 5 ) 02/01/2023 1:08 PM DATA ABSTRACTOR Body Mass Index 32.95 02/01/2023 1:08 PM DATA ABSTRACTOR Plan of Treatment Health Maintenance Due Date Last Done Comments DTAP/TDAP/TD VACCINES (1 - Tdap) 1992 HEPATITIS B VACCINES (1 of 3 - 19+ 3-dose series) 03/1992 HPV/Cotest (21-29) 1994 CERVICAL CANCER SCREENING 09/05/2003 HPV/Cotest (30-65) 09/05/2003 PAP SMEAR 09/05/2003 BREAST CANCER SCREENING 2013 COLORECTAL SCREENING 2018 Colorectal Cancer Screening 2018 FIT-DNA Q 3 years 2018 FIT/FOBT Q 1 year 2018 Flex Sig/CT Colonography Q 5 years 2018 ZOSTER VACCINE (1 of 2) 09/05/2023 INFLUENZA VACCINE (#1) 2024 Insurance OPEN ACCESS HMO Care Teams Hotel Concierge Relationship Specialty Start Date End Date Sandra Jeter APN [facility] [address] [id number] PCP - General NURSE PRACTITIONER 01/03/14
[2024-12-01 03:17] VITALS: BP 141/96; PULSE 86; RESP 18; TEMP 37.1; O2SAT 97; BMI 37.8
--- OUTSIDE RECORDS SUMMARY | 2024-12-01 03:17 | XMS_ITS | Patient Health Record ---
Author Organization [facility] Address [address] [place] [address] Care Team Providers [facility] Nurse Practitioner Name Role Phone Madai Dunbar Primary Care Provider Khai Landon Unavailable [phone] MADAI DUNBAR Unavailable Unavailable Kellen Campos Unavailable [phone] Fabi Elizalde Unavailable [phone] Migration, Provider Unavailable Unavailable Luisito Willis Unavailable [phone] Allergies No Known Allergies Results Component Value Reference Range Flag Notes CT Abdomen, Pelvis w/o Contr ast-[id number] Reviewed date:06/21/2024 10:51:43 AM Interpretation: Performing Lab: Notes/Report: See Below For Report CT Abdomen, Pelvis w/o Contrast Read See Below For Report Lumbosacral Spine AP/Lat-721 00 (Not yet reviewed by provider) Interpretation: Performing Lab: Notes/Report: [id number]&org=iSite Colonoscopy, High Risk Rolo jamesg-[id number] Reviewed date:10/11/2024 01:57:07 PM Interpretation: Performing Lab: Notes/Report: Diagnostic Colonoscopy-[id number] Reviewed date:09/27/2024 03:20:01 PM Interpretation: Performing Lab: Notes/Report: Knee Min 3V Right-64991 Reviewed date:02/24/2024 10:37:25 AM Interpretation: Performing Lab: Notes/Report: [email or web address]=[id number]&org=iSite Foot Min 3V Right-[id number] Reviewed date:02/24/2024 10:37:25 AM Interpretation: Performing Lab: Notes/Report: dni=[id number]&org=iSite Schedule Confirmation (Not y et reviewed by provider) Interpretation: Performing Lab: Notes/Report: MRI Lumbar Spine w/o Cont CT Abdomen, Pelvis w/o Contr ast-[id number] Reviewed date:06/20/2024 03:28:35 PM Interpretation: Performing Lab: Notes/Report: sde=[id number]&org=iSite T3 Free 14950 Reviewed date:05/10/2024 11:17:17 AM Interpretation: Performing Lab: Notes/Report: Diagnosis Description: Encounter for screening for other suspected endocrine disorder Free T3 3.0 2.3-4.2 pg/mL T4 [id number] Reviewed date:05/10/2024 11:17:24 AM Interpretation: Performing Lab: Notes/Report: Diagnosis Description: Encounter for screening for other suspected endocrine disorder Free T4 1.07 0.89-1.76 NG/DL Thyroid Stimulating Hormone (TSH) 80836 Reviewed date:05/10/2024 11:17:11 AM Interpretation: Performing Lab: Notes/Report: Diagnosis Description: Encounter for screening for other suspected endocrine disorder TSH 2.157 .358-3.740 MlU/ML Lipid Panel Reflex DLDL 8006 1, 82308 Reviewed date:05/10/2024 11:21:10 AM Interpretation: Performing Lab: Notes/Report: Diagnosis Description: Essential (primary) hypertension Trig 93 NA Children: Female High 200-499 5-9 yr 30-101 Adults: >20yrs 5-9 yr 32-105 Children: Male Desirable <150 0-4 yr 34-112 10-14 yr 32-125 10-14 yr 37-131 Borderline High 150-199 0-4 yr 22-99 Classification Guidelines:Triglyceride s 15-19 yr 37-148 Very high >=500 15-19 yr 39-132 Chol 230 <=200 MG/DL HI HDL 76 39-96 MG/DL 10-14y 37-74 >=20y 40-59 Reference Ranges:HDL 5-9y 36-73 >=20y 40-59 Male: 15-19y 30-63 10-14y 37-70 Female: 5-9y 38-75 15-19y 35-74 CH/HDL 3.0 0.0-4.9 RATIO LDL 136 0-130 MG/DL HI LDL result is inaccurate , if Trig is >400 mg/dl. See DLDL result. Comprehensive Metabolic Pane l ([facility]) [address]127 Reviewed date:05/10/2024 11:21:56 AM Interpretation: Performing Lab: Notes/Report: Diagnosis Description: Essential (primary) hypertension Glucose Serum 81 71-110 MG/DL Testing p erformed at [facility], [address] [place] [address] [place] [address]. CLIA ID#: [id number] BUN 15 7-21 MG/DL Creat .82 .51-1.17 MG/DL M-alenzg-f-benzoquinon e imine (NAPQI) is a metabolite of acetaminophen, NAPQI concentrations of apparoximately 10 mg/L correlation to toxic levels of acetaminophen demonstrates a greater than or equil to 10% change in results. NAPQI concentrations greater than this may lead to falsely depressed results for patient samples. Use of this assay is not recommended for patients undergoing treatment with phenindione, due to the potential for falsely depressed results. GFR 86.1 NA Calculation pe rformed from GFR calculator provided by the [employer]. Glomerular Filtration rate(GRF) is the best overall index of kidney function. Normal GFR varies according to age,sex, body size, and declines with age. The [employer] recommends using the CKD-EPI Creatinine Equation(2020) to estimate GFR. BUN/Creat Ratio 18.3 12.0-20.0 % Total Protein 8.0 5.8-8.0 G/DL Albumin 5.2 3.2-4.8 G/DL HI Globulin 2.8 2.3-3.5 G/DL Alb/Glob 1.9 0.8-2.2 Calcium 9.8 8.7-10.4 MG/DL Sodium 140 136-145 MMOL/L Potassium 3.7 3.5-5.1 MMOL/L Chloride 98 98-107 MMOL/L CO2 28.6 20.0-31.0 MMOL/L Anion Gap 17 5-15 HI Alk Phos 93 46-116 Bili Total .5 .3-1.2 MG/DL Use of this assay is not recommended for patients undergoing treatment with eltrombopag due to the potential for falsely elevated results. AST/SGOT 42 15-37 UNIT/L HI ALT/SGPT 53 12-78 UNIT/L Osmo Serum,Calculated 290 280-300 MOSM/KG CBC w\ Auto Diff 63748 Reviewed date:05/10/2024 11:21:30 AM Interpretation: Performing Lab: Notes/Report: Diagnosis Description: Essential (primary) hypertension WBC 6.9 4.5-11.0 X10'3 RBC 5.00 4.00-5.20 X10'6 Hgb 12.9 12.0-16.0 G/DL Hct 40.1 36.0-46.0 % MCV 80.2 80.0-100.0 FL MCH 25.8 27.0-31.0 PG LOW MCHC 32.2 31.0-37.0 G/DL Platelet 326 150-400 X10'3 RDW-SD 43.5 35.0-49.0 FL RDW-CV 14.9 12.2-15.6 % MPV 11.6 9.2-12.0 FL Neutro Auto% 53.2 40.0-70.0 % Lymph Auto% 34.3 22.0-44.0 % Wilbarger Auto% 8.7 3.0-7.0 % HI Eos Auto% 2.2 2.0-4.0 % Baso Auto% 1.3 0.0-1.0 % HI Imm Gran% .3 .0-.4 % Neutro Abs 3.67 .80-7.70 Absolute Neutrophil Count 3670 NA Lymph Abs 2.37 .10-4.10 Wilbarger Abs .60 .20-1.00 Eos Abs .15 .00-.40 Baso Abs .09 .00-.20 Imm Gran Abs .02 .00-.10 NRBC# .00 .00-.20 X10'3 NRBC% .00 .00-.20 /100 intact WBC's MRI Lumbar Spine w/o Cont-72 148 (Not yet reviewed by provider) Interpretation: Performing Lab: Notes/Report: [email or web address]=[id number]&org=iSite MRI Lumbar Spine w/o Cont-72 148 (Not yet reviewed by provider) Interpretation: Performing Lab: Notes/Report: See Below For Report MRI Lumbar Spine w/o Cont Diagnosis Description: Radiculopathy, lumbar region Read See Below For Report Schedule Confirmation (Not y et reviewed by provider) Interpretation: Performing Lab: Notes/Report: MRI Lumbar Spine w/o Cont Schedule Confirmation (Not y et reviewed by provider) Interpretation: Performing Lab: Notes/Report: MRI Lumbar Spine w/o Cont Foot Min 3V Right-[id number] Reviewed date:02/24/2024 10:37:25 AM Interpretation: Performing Lab: Notes/Report: The report for this exam was dictated at [facility] . FINAL REPORT Read The report for this exam was dictated at [facility] . Knee Min 3V Right-98011 Reviewed date:02/24/2024 10:37:25 AM Interpretation: Performing Lab: Notes/Report: The report for this exam was dictated at [facility] . FINAL REPORT Read The report for this exam was dictated at [facility] . IH Lumbosacral Spine AP/Lat - 00093 (Not yet reviewed by provider) Interpretation: Performing Lab: Notes/Report: See Below For Report Lumbosacral Spine AP/Lat Diagnosis Description: Radiculopathy, lumbar region Reason For Referral Reason Dr. Campos for evalua tion of right knee and foot Diagnosis 1 Lumbar radiculopathy (M54.16) Referral Organization [facility] [place] Referring Provider First Name Luisito Referring Provider Last Name Alba Referring Provider Speciality Neurosurge wayne Referred Organization [facility] Referred Provider Kellen Campos Referred Address [address] [place] [address],[place],[address], Referred Provider Specialty Orthopedic S urgery Referral Priority Routine Reason low back pain, eval and treat Diagnosis 1 Lumbar radiculopathy (M54.16) Diagnosis 2 Lumbar spondylosis ( M47.816) Referral Organization [facility] [place] Referring Provider First Name Luisito Referring Provider Last Name Alba Referring Provider Speciality Neurosurge ry Referred Provider [place], [place] Referred Provider Specialty Physical The rapist Referral Priority Routine Reason Eval and treat right foot stretching and lumbar strengthening 2-3 times a week for 4-6 weeks Diagnosis 1 Plantar fasciitis (M 72.2) Diagnosis 2 Lumbar pain (M54.50) Referral Organization [facility] Referring Provider First Name Kellen Referring Provider Last Name Andres Referring Provider Speciality Orthopedic Surgery Referred Provider Rafael Camilo Referred Provider Specialty Clinic/[facility] Referral Priority Routine Reason SCREENING Diagnosis 1 Screening for colon cancer (Z12.11) Referral Organization [facility] Referring Provider First Name Madai Referring Provider Last Name Manjinder Referring Provider Speciality Nurse Bandar cortez Referred Organization [facility] Referred Provider Khai Landon Referred Address [address],[address], Referred Provider Specialty Internal Med icine Referral Priority Routine Reason Screening Diagnosis 1 Screening for colon cancer (Z12.11) Referral Organization [facility] Referring Provider First Name Madai Referring Provider Last Name Manjinder Referring Provider Speciality Nurse Bandar cortez Referred Provider KHAI LANDON Referred Provider Specialty Internal Med icine General Notes Samra Horvath 08/23 09:16:19 AM >faxed Referral Priority Routine Medications Medication SIG (Take, Route, Frequency, Duration) Notes Start Date End Date Status Albuterol Sulfate HFA 108 (90 Base) MCG/ACT Aerosol Solution INHALE TWO PUFFS into lungs EVERY 4 HOURS NEEDED; Duration: 16 Active Famotidine 40 MG Tablet 1 tablet at bedt lottie Orally Once a day Not-Taking Tamsulosin HCl 0.4 mg Capsule TAKE ONE CAPSULE BY MOUTH DAILY; Duration: 30 Not-Taking Metoprolol Succinate ER 25 MG Tablet Extended Release 24 Hour 1 tablet Orally Once a day; Duration: 90 days Active Zolpidem Tartrate 10 mg Tablet TAKE ONE TABLET BY MOUTH EVERY NIGHT AT BEDTIME NEEDED; Duration: 30 08/20/2024 Active Carafate 1 GM Tablet 1 tablet on an empt y stomach Orally three times a day Not-Taking Zithromax 250 MG Tablet as directed Orally 024 Not-Taking Celecoxib 200 mg Capsule TAKE 1 CAPSULE BY MOUTH with food DAILY; Duration: 30 days Active Mucinex D 60-600 MG Tablet Extended Release 12 Hour 1 tab Orally Twice a day prn sinus; Duration: 30 days 11/23/2021 Not-Taking Triamterene-HCTZ 37.5-25 MG Tablet TAKE ONE TABLET BY MOUTH EVERY DAY NEEDED FOR SWELLING; Duration: 30 Active Azithromycin 250 MG Tablet Z pack as directed Orally 05/09/2023 Not-Taking Pregabalin 50 MG Capsule 1 capsule Orally twice a day; Duration: 30 days 10/05/2024 12/04/2024 Active Pantoprazole Sodium 40 mg Tablet Delayed Release TAKE ONE TABLET BY MOUTH DAILY; Duration: 30 Active Ozempic (0.25 or 0.5 MG/DOSE) 2 MG/1.5ML Solution Pen-injector 0.5 mg Subcutaneous weekly Not-Taking Acyclovir 400 MG Tablet 1 tablet Orally Three times a day; Duration: 7 days Active Emulmqpw-Dfdstdhfc-XW 1 % Solution 4 drops into affected ear Otic four times a day; Duration: 7 days Not-Taking Gabapentin 100 MG Capsule 1 capsule Orally three times a day; Duration: 30 days Not-Taking PARoxetine HCl 20 mg Tablet TAKE 1 TABLET BY MOUTH EVERY MORNING; Duration: 30 Active Immunizations Vaccine Route Administration Date Status Comme nts Flucelvax Trivalent, Syringe 0.5 mL, PF Unknown 024 Refused Social History Tobacco Use: Social History Observation Description Date Details (start date - stop date) Former Smoker NA - NA Social History Depression Screening Social Info Question Answer Notes depression screening findings Findings Negative (0 -4) 09/12/24 PHQ-9 Little interest or p radha in doing things Not at all Feeling down, depressed, or hopeless Not at all Trouble falling or staying asleep, or sleeping t oo much Not at all Feeling tired or having little energy Not at all Poor appetite or overeating Not at all Feeling bad about yourself, or that you are a failure, or have let yourself or your family down Not at all Trouble concentrating on thi ngs, such as reading the newspaper or watching television Not at all Moving or speaking so slowly that other people could have noticed. Or the opposite ? being so fidgety or restless that you have been moving around a lot more than usual Not at all Thoughts that you would be b salo off , or of hurting yourself in some way Not at all Total Score 0 Drugs/Alcohol: Social Info Question Answer Notes Alcohol Screen (Audit-C) Did you have a drink containing alcohol in the past year? No Points 0 Interpretation Negative Drugs Have you used drugs other than those for medical reasons in the past 12 months? No Caffeine Intake: more than 4 cups per day Tobacco Use: Social Info Question Answer Notes Tobacco Control (Standard) Tobacco use: Former smoker How long has it been since you last smoked? 5-10 years Additional Details Category Social Info Options Details Drugs/Alcohol: Do you smoke marijuana? De nies Do you drink alcohol? No Migrated Social History Migrated Social History Alcoholic beverages? - No, Applying for disability? - No, Are you or is there a chance you could be - No, Current Occupation - [employer], Currently on disability? - No, Drug or substance abuse? - No, exposure to toxins/poisonous substances at work - No, Involved in any legal proceedings or lawsuits? - No, Marital Status - , Nonprescription drug use? - No, Participation in detoxification or rehabilitation - No, Smoking - No, Working currently? - Yes Section Notes: 3 PHQ9 3-- PHQ9 -- PHQ9 05/09/23 PHQ9 -- PHQ9 05/09/23 PHQ9 -- PHQ9 05/09/23 PHQ9 -- PHQ9 05/09/23 PHQ9 3-- PHQ9 05/09/23 PHQ9 02/16/24 PHQ9 3-- PHQ9 05/09/23 PHQ9 02/16/24 PHQ9 3-- PHQ9 05/09/23 PHQ9 02/16/24 PHQ9 3-- PHQ9 05/09/23 PHQ9 02/16/24 PHQ9 3-- PHQ9 05/09/23 PHQ9 02/16/24 PHQ9 3-- PHQ9 05/09/23 PHQ9 02/16/24 PHQ9 3-- PHQ9 05/09/23 PHQ9 02/16/24 PHQ9 3-- PHQ9 05/09/23 PHQ9 02/16/24 PHQ9 08/23/24 PHQ9 3-- PHQ9 05/09/23 PHQ9 02/16/24 PHQ9 08/23/24 PHQ9 3-- PHQ9 05/09/23 PHQ9 02/16/24 PHQ9 08/23/24 PHQ9 CIME Dep/Tob 09/12/24 3-03-29 PHQ9 05/09/23 PHQ9 3 PHQ9 05/09/23 PHQ9 05-05-22 PHQ9 05/09/23 PHQ9 05-05-22 PHQ9 05/09/23 PHQ9 05-05-22 PHQ9 05/09/23 PHQ9 05-05-22 PHQ9 05/09/23 PHQ9 3 PHQ9 3 PHQ9 05-05-22 PHQ9 05-05-22 PHQ9 05-05-22 PHQ9 05-05-22 PHQ9 05-05-22 PHQ9 05-05-22 PHQ9 Problems Problem Type SNOMED Code ICD Code Onset Dates Problem Status W/U Status Risk Notes Problem Mixed hyperlipidemia (948928415) Mixed hyperlipidemia (E78.2) Active confirmed Problem History of polyp of colon (situation) (168644505) Personal history of colonic polyps (Z86.010) Active confirmed Problem Essential hypertension (23480884) Essential hypertension (I10) Active confirmed Problem Anxiety (41585813) Anxiety (F41.9) Active confi rmed Problem Localized, primary osteoarthritis of the pelvic region and thigh (533940474) Primary osteoarthritis of right hip (M16.11) Active confirmed Problem Lumbar radiculopathy (931303752) Lumbar radiculopathy (M54.16) Active confirmed Problem Sinusitis (02317708) Sinusitis (J32.9) Active confirmed Problem Lumbar spondylosis (762096425) Lumbar spondylosis (M47.816) Active confirmed Problem Posttraumatic stress disorder (14224597) Post traumatic stress disorder (PTSD) (F43.10) Active confirmed Problem Insomnia (928785721) Insomnia (G47.00) Active confirmed Problem Obesity (452869775) Obesity (BMI 30-39.9) (E66.9) Active confirmed Problem Major depression, single episode (87581178) Depression, major (F32.9) Active confirmed Problem Prolapsed lumbar intervertebral disc (310288903) Lumbar disc herniation (M51.26) Active confirmed Problem Plantar fasciitis of right foot (34468822518895159) Plantar fasciitis of right foot (M72.2) Active confirmed Problem Pain of right knee region (finding) (009938262766510) Right knee pain, unspecified chronicity (M25.561) Active confirmed Problem Depression (225417534) Depression (F32.9) Active confirmed Problem Acute frontal sinusitis (84818485) Acute non-recurrent frontal sinusitis (J01.10) Active confirmed Problem Overactive urinary bladder (disorder) (939893599) OAB (overactive bladder) (N32.81) Active confirmed Problem Lumbosacral spondylosis without myelopathy (84262292) Osteoarthritis of spine with radiculopathy, lumbar region (M47.26) Active confirmed Problem Urinary hesitancy (2432251) Urinary hesitancy (R39.11) Active confirmed Problem History of gallstones (732166178) History of gallstones (Z87.19) Active confirmed Problem Gastroesophageal reflux disease (709872821) GERD (gastroesophageal reflux disease) (K21.9) Active confirmed Problem Gynecological examination normal (363982782429514) Well woman exam with routine gynecological exam (Z01.419) Active confirmed Problem Degeneration of lumbar intervertebral disc (20516973) Disc degeneration, lumbar (M51.36) Active confirmed Problem Seen in weight management clinic (finding) (475911126) Encounter for weight management (Z76.89) Active confirmed Problem Urgency of micturition (10052661) Urgency of micturition (R39.15) Active confirmed Problem Body mass index 30.00 to 34.99 (538389441497717) Body mass index [BMI] 31.0-31.9, adult (Z68.31) Active confirmed Problem Body mass index 30.00 to 34.99 (302608359100634) Body mass index [BMI] 33.0-33.9, adult (Z68.33) Active confirmed Problem Body mass index 35.00 to 39.99 (586038069333453) Body mass index 35.0-35.9, adult (Z68.35) Active confirmed Problem Osteonecrosis (335443432) Osteonecrosis (M87.9) Active confirmed Problem Acute cough (764512702811603593 ) Acute cough (R05.1) Active confirmed Problem Low back pain (finding) (185764938) Low back pain without sciatica, unspecified back pain laterality, unspecified chronicity (M54.50) Active confirmed Problem Stenosis of lateral recess of lumbar spine (498213666) 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) Active confirmed Problem Osteonecrosis of hip (120250366) Osteonecrosis of hip (M87.9) Active confirmed Vital Signs Heart Rate 92 /min 09/12/2024 Temperature 98.1 degrees Fahrenheit 09/12/2024 Respiratory Rate 20 /min 08/29/2024 Oximetry 100 % 09/12/2024 Height-cm 162.56 cm 09/12/2024 Blood pressure diastolic 92 mm Hg 09/12/2024 Weight-kg 94.35 kg 09/12/2024 Height 64 in 09/12/2024 Blood pressure systolic 126 mm Hg 09/12/2024 Weight 208 lbs 09/12/2024 BMI 35.7 kg/m2 09/12/2024 Encounters Encounter Location Date Provider Diagnosis [facility] [place] [address] [place] [address] 01/18/2024 Luisito Willis Lumbar radiculopathy M54.16 ; Lumbar disc herniation M51.26 ; Disc degeneration, lumbar M51.36 ; Lumbar spondylosis M47.816 and Stenosis of lateral recess of lumbar spine M48.061 [facility] [address] [address] 02/16/2024 Madai Dunbar Depression F32.9 ; Insomnia G47.00 ; Depression screen Z13.31 ; Encounter for immunization Z23 and Immunization not carried out because of patient refusal Z28.21 [facility] [address] [facility] [address] 02/21/2024 Kellen Campos Right knee pain, unspecified chronicity M25.561 ; Plantar fasciitis of right foot M72.2 and Low back pain without sciatica, unspecified back pain laterality, unspecified chronicity M54.50 [facility] [address] [address] 04/11/2024 Madai Dunbar Acute sinusitis J01.90 ; Body aches R52 and Obesity (BMI 30-39.9) E66.9 [facility] [address] [place] [address] 05/09/2024 Madaivictor m Dunbar Essential hypertension I10 and Screening for thyroid disorder Z13.29 [facility] [address] [place] [address] 05/23/2024 Madai Dunbar Essential hypertension I10 and Mixed hyperlipidemia E78.2 [facility] [address] [place] [address] 06/20/2024 Madai Dunbar RLQ abdominal pain R10.31 and Nausea R11.0 [facility] [address] [place] [address] 06/27/2024 Madai Dunbar Shingles B02.9 [facility] [address] [place] [address] 08/23/2024 Madai Dunbar Essential hypertension I10 ; Obesity (BMI 30-39.9) E66.9 ; Screening for colon cancer Z12.11 ; Screening for breast cancer Z12.39 and Depression screen Z13.31 [facility] [address] [place] [address] 08/29/2024 Madai Veraaramis Acute sinusitis J01.90 and Depression F32.9 [facility] [address] [place] [address] 09/12/2024 Khai Landon Chronic diarrhea K52.9 ; History of adenomatous polyp of colon Z86.0101 and Depression screen Z13.31 [facility] [address] [place] [address] 09/21/2024 Khai Landon Encounter for screening for malignant neoplasm of colon Z12.11 and Personal history of colonic polyps Z86.010 [facility] 0 12/31/2023 Provider Migration [facility] 0 0 01/01/2024 Provider Migration [facility] [address] [place] [address] 01/12/2024 Madai Manjinder Strep pharyngitis J02.0 [facility] [place] [address] [place] [address] 01/20/2024 Luisito Willis [facility] [address] [place] [address] 05/07/2024 Madaivictor m Gamezaramis [facility] [address] [facility] [address] 05/09/2024 Kellen Campos [facility] [address] [facility] [address] 07/13/2024 Kellen Campos [facility] [address] [place] [address] 07/20/2024 Madai Dunbar Depression F32.9 [facility] [address] [place] [address] 10/04/2024 Luisito Willis Assessments Encounter Date Diagnosis (ICD Code) Assessment Notes Treatment Notes Treatment Clinical Notes Section Notes 01/12/2024 Strep pharyngitis (ICD-10 - J02.0) 01/18/2024 Lumbar radiculopathy (ICD-10 - M54.16) 05/23/2024 Mixed hyperlipidemia (ICD-10 - E78.2) Work on diet. 05/23/2024 Essential hypertension (ICD-10 - I10) Improved, continue to monitor BP at home daily, recheck in 3 months. 06/20/2024 Nausea (ICD-10 - R11.0) Zofran injection given. 06/20/2024 RLQ abdominal pain (ICD-10 - R10.31) Will have [facility] abd[facility]pelvis at [facility] today at 1030. 07/20/2024 Depression (ICD-10 - F32.9) 08/23/2024 Essential hypertension (ICD-10 - I10) Stable, continue to monitor BP at home daily, recheck in 3 months with lab. 02/16/2024 Depression (ICD-10 - F32.9) Stable, recheck in 6 months. 02/21/2024 Plantar fasciitis of right foot (ICD-10 - M72.2) We will refer pt to PT to work on stretching her heel and lumbar stretching. Will also start patient on Celebrex 200 mg daily to help with inflammation . We will see her back in 6 weeks 02/21/2024 Right knee pain, unspecified chronicity (ICD-10 - M25.561) We will refer pt to PT to work on stretching her heel and lumbar stretching. Will also start patient on Celebrex 200 mg daily to help with inflammation . We will see her back in 6 weeks 02/16/2024 Insomnia (ICD-10 - G47.00) 08/23/2024 Obesity (BMI 30-39.9) (ICD-10 - E66.9) Increased activity, such as Brisk walking, yoga, hiking. Decrease intake, such as reduce sugar, reduce sodium, reduce portions, reduce carbohydrates, increase water intake, increase fiber. Take medication as directed. RTC 1 month for recheck. 09/12/2024 Chronic diarrhea (ICD-10 - K52.9) 09/12/2024 History of adenomatous polyp of colon (ICD-10 - Z86.0101) -x- to be completed at [facility] - -to be completed at [facility] - -to be completed at [facility] - -to be completed at [facility] 09/21/2024 Encounter for screening for malignant neoplasm of colon (ICD-10 - Z12.11) 09/21/2024 Personal history of colonic polyps (ICD-10 - Z86.010) 08/29/2024 Acute sinusitis (ICD-10 - J01.90) Steroid injection given. Increase fluids, take medication as directed. RTC if no improvement with treatment. 08/29/2024 Depression (ICD-10 - F32.9) Recheck in 3-4 weeks. 06/27/2024 Shingles (ICD-10 - B02.9) Recheck next week if not improving. 05/09/2024 Essential hypertension (ICD-10 - I10) Monitor BP at home daily, recheck in 2 weeks. 05/09/2024 Screening for thyroid disorder (ICD-10 - Z13.29) 04/11/2024 Body aches (ICD-10 - R52) Toradol injection given. 04/11/2024 Acute sinusitis (ICD-10 - J01.90) Steroid injection given. Increase fluids, take medication as directed. RTC if no improvement with treatment. 04/11/2024 Obesity (BMI 30-39.9) (ICD-10 - E66.9) 09/12/2024 Depression screen (ICD-10 - Z13.31) 02/16/2024 Depression screen (ICD-10 - Z13.31) 02/21/2024 Low back pain without sciatica, unspecified back pain laterality, unspecified chronicity (ICD-10 - M54.50) We will refer pt to PT to work on stretching her heel and lumbar stretching. Will also start patient on Celebrex 200 mg daily to help with inflammation . 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 Mejia returns to clinic with worsening and new symptoms in her right knee, right foot, and right hip. She reports her hip pain feels similar now to when it did prior to surgery. She also reports knee pain which is atypical of a spine pathology as she is able to press into her knee and cause increased pain. She is also having swelling in her right foot and soreness. Due to her increased radicular pain in her hip and the new weakness she is having in her right foot, I think it would be best to order a MRI of her lumbar spine to see if she did have a disc re-herniation at this time. Prior to MRI we will order lumbar xray for further evaluation. * Xrays done after clinic show slight lumbar scoliosis, otherwise unremarkable. We will also provide her a referral to an inside sales specialist to rule out any musckuloskeletal involvement. In the interum, we will provide her with a rx of pregabalin to take in place of her gabapentin as she reports gabapentin makes her feel foggy so she is not able to take it regularly. She will return to clinic once MRI Lumbar spine has been completed and she will see Dr. Willis for evaluation of this. 05/09/2024 Other Venipuncture performed. Right arm. One attempt. Pt tolerated well, bleeding controlled with light dressing.Samra Lissetchaloalvina VEHICLE CARE SPECIALIST 09/21/2024 Other see scanned document from [facility] in patients documents. Plan Of Treatment Pending Test Test Name Order Date Foot 3V 02/21/2024 Knee 3V 02/21/2024 Prothrombin Time 93675 08/11/2023 Basic Metabolic Panel (BMP) 18206 2023 CBC w\ Auto Diff 17198 08/11/2023 Partial Thromboplastin Time 35705 2023 Lumbosacral Spine AP/Lat-24422 4 MRI Lumbar Spine w/o Cont-27500 01/18/20 24 MRI Lumbar Spine w/o Cont-65539 02/11/20 24 Electrocardiogram 12 Lead Tracing-43243 08/11/2023 Schedule Confirmation 02/15/2024 Schedule Confirmation 02/11/2024 Schedule Confirmation 02/11/2024 Mammogram Screening Digital Breast Tomos ynthesis, bilateral - 64303 08/23/2024 IH Lumbosacral Spine AP/Lat - 12486 01/05 Insurance Providers Payer Name Payer Address Payer Phone Subscriber Number Group Number Insured Name Patient Relationship to Insured Coverage Start Date Coverage End Date Healthy [facility] Medicaid Replacement [address] [address] [place] [address] [id number] SAMRA MEJIA Self - patient is the insured 4 [place] [address] [place] [address] [id number] SAMRA MEJIA Self - patient is the insured 4 4 [facility] DO NOT MAIL [facility] FIN[employer]CIAL ASSISTANCE [address] [place] [address] 50 SAMRA MEJIA Self - patient is the insured 4 Medications Administered Medication Instructions Date of Administration Dosage Notes DEPO-Medrol 11/23/2021 40 mg NDC: [address]-36 Patient tolerated well, advised to wait 20 min at clinic DEPO-Medrol 11/09/2023 40 mg [id number] 3-01 Patient tolerated well. DEPO-Medrol 04/11/2024 40 mg fsm-74706-754 3- Patient tolerated well. DEPO-Medrol 08/29/2024 40 mg [id number] 3-01 Patient tolerated well. DEPO-Medrol 11/24/2022 40 mg [id number] 3-01 Patient tolerated well. dexAMETHasone 11/24/2022 4 mg nd-71504-0 423-00 Patient tolerated well. dexAMETHasone 11/23/2021 4 mg NDC: 48796-980-92 Patient tolerated well, advised to wait 20 min at clinic dexAMETHasone 05/05/2022 8 mg [id number]-96172-6 423-00 Patient tolerated well dexAMETHasone 11/09/2023 4 mg [id number]-15074-9 423-00 Patient tolerated well. dexAMETHasone 04/11/2024 4 mg [id number] 423-00 Patient tolerated well. dexAMETHasone 08/29/2024 4 mg nd-[id number] 423-00Pa tient tolerated well. Ketorolac Tromethamine 05/05/2022 60 mg nd [id number] Patient tolerated well. Ketorolac Tromethamine 04/21/2023 60 mg nd [id number] Patient tolerated well. Ketorolac Tromethamine 05/09/2023 60 mg nd [id number] tient tolerated well. Ketorolac Tromethamine 04/11/2024 60 mg nd [id number] Patient tolerated well. Rocephin 11/23/2021 250 mg NDC: 5100-3071-10 Patient tolerated well, advised to wait 20 min at clinic Ondansetron HCl 06/20/2024 4 mg nd-94624 -6078-01 Patient tolerated well. Medical (General) History Medical History History ICD Code anxiety GERD gallstones depression covid shingles chicken pox pneumonia migraines back trouble Surgical History Surgery Date(Month/Year) partial hysterectomy cholecystectomy sling, at bladder neck fistula repair (rectovaginal) appendectomy Hysterectomy Hospitalization History Reason Date(Month/Year) see surgical history childbirth x3
--- OUTSIDE RECORDS SUMMARY | 2024-12-01 03:17 | XMS_ITS | Encounter Summary ---
Author Organization [facility] Address [address] [place] [address] Care Team Providers Care Multimedia Journalist Name Role Phone Sandra Jeter APN Primary Care Provider [phone] Reason for Referral * Outpatient Services (Routine) - Closed Specialty Diagnoses / Procedures Referred By Contac t Referred To Contact Radiology Diagnoses Lump or mass in breast Procedures MAMMO UNILATERAL ADDL VW RIGHT Raheem Schaeffer MD NO ADDRESS ON FILE [facility] [address] [place] [phone] Phone: tel: fax: Referral ID Status Reason Start Date Expiration Date Visits Requested Visits Authorized [id number] Closed Performing Department To Schedule (SGF) 01/07/2014 02/07/2015 1 1 MACHINE OPERATOR * Outpatient Services (Routine) - Closed Specialty Diagnoses / Procedures Referred By Contac t Referred To Contact Radiology Diagnoses Lump or mass in breast Procedures MAMMO BREAST US BIOPSY RIGHT Raheem Schaeffer MD NO ADDRESS ON FILE [facility] [address] [place] [phone] Phone: tel: fax: Referral ID Status Reason Start Date Expiration Date Visits Requested Visits Authorized [id number] Closed Performing Department To Schedule (SGF) 01/07/2014 02/07/2015 1 1 MACHINE OPERATOR * Outpatient Services (Routine) - Closed Specialty Diagnoses / Procedures Referred By Eliceo alexis Referred To Contact Diagnoses Lump or mass in breast Procedures MAMMO BREAST US RT Raheem Schaeffer MD NO ADDRESS ON FILE [facility] Pre-Registration [place] CALL TO MAKE APPOINTMENT ONLY [address] [place] [address] Phone: tel: fax: Referral ID Status Reason Start Date Expiration Date Visits Re quested Visits Authorized [id number] Closed 01/07/2014 02/07/2015 1 1 MACHINE OPERATOR Encounter Details Date Type Department Care Team (Late st Contact Info) Description 01/07/2014 Ancillary Orders [facility] [address] [facility] [address] [place] [address] Raheem Schaeffer MD NO ADDRESS ON FILE Lump or mass in breast (Primary Dx) Social History Tobacco Use Types Packs/Day Years Used Date Smoking Tobacco: Every Day Cigarettes Comments Unknown Sex and Gender Information Value Date Recorded Sex Assigned at Not on file Legal Sex Female 10:11 AM CDT Gender Identity Not on file Sexual Orientation Not on file Occupation Industry Job Start Date Job End Date Not on file Not on file Not on file Not on file documented as of this encounter Plan of Treatment Scheduled Orders Name Type Priority Associated Diagnoses Orde r Schedule MAMMO BREAST US BIOPSY RIGHT Imaging Routine Lump or mass in breast 1 Occurrences starting 01/07/2014 until 07/08/2015 MAMMO UNILATERAL ADDL VW RIGHT Imaging Routine Lump or mass in breast 1 Occurrences starting 01/07/2014 until 07/08/2015 documented as of this encounter Results * MAMMO BREAST US RT (01/10/2014 8:55 AM ERCO MACHINE OPERATOR) Anatomical Region Laterality Modality Breast Right Ultrasound 01/10/2014 8:28 AM ERCO MACHINE OPERATOR Impressions 01/10/2014 10:46 AM ERCO MACHINE OPERATOR IMPRESSION: I see no area of suspicion on directed right breast ultrasound today, the area of ultrasound changes on outside ultrasound, and historical palpable abnormality. I see no significant normality on outside mammogram, as well, and I would recommend clinical correlation regarding the palpable lump, but from an imaging standpoint, I would recommend repeat mammogram in one year. I discussed this with the patient. She is agreeable. Patient received a result/recommendation letter. LAUREN/anastasiia - uploaded from [email or web address] - Narrative 01/10/2014 10:46 AM ERCO MACHINE OPERATOR Right breast ultrasound: This 38-year-old female presents after having a negative screening mammogram 12/20/2013, and a right breast ultrasound same date, all of this at [facility], with some suspected fibrocystic changes and with recommendation for six-month followup right breast ultrasound for the asymmetric changes at 2 o'clock position upper medially, noted on their ultrasound. She has since seen Dr. Schaeffer and was referred for our review and evaluation. Ultrasound was performed of the upper medial aspect of the right breast, the location of historical palpable abnormality and of nonspecific changes on outside ultrasound. Some fibrocystic changes are suggested, but no discrete or suspicious abnormality is seen. I cannot with certainty identify the same areas which were noted on the outside ultrasound. I reviewed the right ultrasound and bilateral mammogram from 12/20/2013, from [facility]. Procedure Note Mohit Gill MD - 01/10/2014 Right breast ultrasound: This 38-year-old female presents after having a negative screening mammogram 12/20/2013, and a right breast ultrasound same date, all of this at [facility], with some suspected fibrocystic changes and with recommendation for six-month followup right breast ultrasound for the asymmetric changes at 2 o'clock position upper medially, noted on their ultrasound. She has since seen Dr. Schaeffer and was referred for our review and evaluation. Ultrasound was performed of the upper medial aspect of the right breast, the location of historical palpable abnormality and of nonspecific changes on outside ultrasound. Some fibrocystic changes are suggested, but no discrete or suspicious abnormality is seen. I cannot with certainty identify the same areas which were noted on the outside ultrasound. I reviewed the right ultrasound and bilateral mammogram from 12/20/2013, from [facility]. IMPRESSION IMPRESSION: I see no area of suspicion on directed right breast ultrasound today, the area of ultrasound changes on outside ultrasound, and historical palpable abnormality. I see no significant normality on outside mammogram, as well, and I would recommend clinical correlation regarding the palpable lump, but from an imaging standpoint, I would recommend repeat mammogram in one year. I discussed this with the patient. She is agreeable. Patient received a result/recommendation letter. LAUREN/anastasiia - uploaded from [email or web address] Scribe - us Raheem Schaeffer MD MAMMO ORDERABLES Final Resu lt documented in this encounter Visit Diagnoses Diagnosis Lump or mass in breast- Primary Lump or mass in breast documented in this encounter Care Teams Multimedia Journalist Relationship Specialty Start Date End Date Corona, Sandra Christopher APN [address] [place] [id number] PCP - General NURSE PRACTITIONER 01/03/14 documented as of this encounter
--- OUTSIDE RECORDS SUMMARY | 2024-12-01 03:17 | XMS_ITS | Clinical Summary ---
Author Organization [facility] Address [address] [place] [address] Care Team Providers Care Appliance Worker Name Role Phone Sandra Jeter APN Primary Care Provider Allergies No known active allergies Medications acetaminophen (TYLENOL) 325 mg tablet Active ASPIRIN/ACETAMINOP HEN/CAFFEINE (EXCEDRIN EXTRA STRENGTH ORAL) Activ e Active Problems No known active problems Family History Medical History Relation Name Comments Diabetes Father Hypertension Father Respiratory Disease Mother Relation Name Status Comments Father Alive Mother Alive Social History Tobacco Use Types [...] file Not on file Not on file Last Filed Vital Signs Vital Sign Reading Time Taken Comments Blood Pressure 110/64 01/03/2014 9:50 AM CDT Pulse - - Temperature - - Respiratory Rate - - Oxygen Saturation - - Inhaled Oxygen Concentration - - Weight 68 kg (150 lb) 01/03/2014 9:50 AM CDT Height 154.9 cm (5' 1 ) 01/03/2014 9:50 AM CDT Body Mass Index 28.34 01/03/2014 9:50 AM CDT Plan of Treatment Health Maintenance Due Date [...] 2) 09/05/2023 INFLUENZA VACCINE (#1) 2024 Insurance [address] [place] [address] Care Teams Appliance Worker Relationship Specialty Start Date End Date Sandra Jeter APN [address] [facility] [address] [place] [address] PCP - General NURSE PRACTITIONER 01/03/14
--- OUTSIDE RECORDS SUMMARY | 2024-12-01 03:17 | XMS_ITS | Data Portability ---
Author Organization [facility]antes [facility] Address [address] [address] Assessment No assessment recorded. Plan of Treatment Reminders Order Date Submit Date Provider Last Modified By Organization Details Last Modified Time Details Appointments None recorded. Lab None recorded. Referral None recorded. Procedures None recorded. Surgeries None recorded. Imaging MAMMO, screening, digital, bilateral - please call the patient to see where she would like it scheduled. 2022 [email or web address] [facility] (Scheduling Orders), [address] [place], [address], 3 13:07:05 Medication Orders None recorded. Patient TargetsNo targets recorded. Patient InstructionsNo instructions recorded. Reason for Referral None Reported. Results Created Date Observation Date Name Description Value Unit Range Abnormal Flag Note LastModifiedBy Organization Detail LastModifiedTime 05/18/19 24 05/17/2023 MAMMO , scree christy, digit al, bilat eral No observ ation record ed. [email or web address] [facility] [address] [place], [address], 06/09/2023 09:03:57 Result Notes None recorded. Problems Name Problem SNOMED Code Status Onset Date Resolution Date Notes Provider Name and Address Organization Details Recorded Time Gastroeso phageal reflux disease 787519573 Active 2022 Gastroesop hageal Reflux Disease; 03/18/2022 9:44AM by Ana Steel RN, Office Visit; Promoted; acuity set as *; Not Available [employer] 3 03:16:35 Benign essential hypertens ion 2540233 Active 2022 Hypertensi on; 03/18/2022 9:44AM by Ana Steel RN, Office Visit; Promoted; acuity set as *; Not Available [facility] 3 03:16:38 Problem Notes None recorded. Medical Equipment None Reported. Medications Name Sig Start Date Stop Date Status Note LastModified by Organization Details LastModified Time cmp dexa/porsha/ keto/lido 0.4/1/10/0 .5 % tpc apply 1 TO 2 pumps (0.5-1 ML) TO affected AREA ON upper back FOUR TIMES DAILY NEEDED active Not Available Not Available No t Available venlafaxin e ER 75 mg capsule,ex tended release 24 hr TAKE ONE CAPSULE BY MOUTH DAILY active Not Available Not Available No t Available venlafaxin e 75 mg tablet TAKE ONE TABLET BY MOUTH with food ONCE a DAY active Not Available Not Available No t Available azithromyc in 250 mg tablet TAKE 2 TABLETS BY MOUTH ON DAY 1, THEN TAKE 1 TABLET DAILY ON DAYS 2 through 5 active Not Available Not Available No t Available alprazolam 1 mg tablet TAKE 1/2 TO 1 TABLET BY MOUTH TWICE DAILY NEEDED for ANXIETY active Not Available Not Available No t Available fluconazol e 150 mg tablet TAKE ONE TABLET BY MOUTH ONCE. MAY REPEAT one TABLET 3 DAYS AFTER first DOSE if symptoms persist. active Not Available Not Available No t Available Xanax 2 mg tablet PRN active 0; Recorded 3 10:13AM by Ana Steel RN, Office Visit; Not Available Not Available Not Available valacyclov ir 1 gram tablet TAKE ONE TABLET BY MOUTH THREE TIMES DAILY active Not Available Not Available No t Available sucralfate 1 gram tablet TAKE ONE TABLET BY MOUTH THREE TIMES DAILY active Not Available Not Available No t Available famotidine 40 mg tablet TAKE ONE TABLET BY MOUTH At Bedtime active Not Available Not Available No t Available prednisone 20 mg tablet TAKE TWO TABLETS BY MOUTH EVERY DAY active Not Available Not Available No t Available phentermin e 37.5 mg tablet TAKE ONE TABLET BY MOUTH BEFORE breafkast ONCE a DAY FOR 30 DAYS active Not Available Not Available No t Available tramadol 50 mg tablet TAKE 1 TO 2 TABLETS BY MOUTH EVERY 6 HOURS NEEDED FOR moderate TO SEVERE pain active Not Available Not Available No t Available amoxicilli n 875 mg tablet TAKE ONE TABLET BY MOUTH TWICE DAILY FOR 7 DAYS active Not Available Not Available No t Available tamsulosin 0.4 mg capsule TAKE ONE CAPSULE BY MOUTH DAILY active Not Available Not Available No t Available pantoprazo le 40 mg tablet,del ayed release BID active 0; Recorded 3 10:13AM by Ana Steel RN, Office Visit; Not Available Not Available Not Available buspirone 10 mg tablet TAKE one half TABLET BY MOUTH TWICE DAILY active Not Available Not Available No t Available Amaya-D 12 Hour 60 mg-120 mg tablet,ext ended release TAKE ONE TABLET BY MOUTH EVERY TWELVE HOURS NEEDED FOR allergy symptoms active Not Available Not Available No t Available oxybutynin chloride ER 5 mg tablet,ext ended release 24 hr TAKE ONE TABLET BY MOUTH ONCE DAILY active Not Available Not Available No t Available triamteren e 37.5 mg-hydroch lorothiazi de 25 mg tablet TAKE ONE TABLET BY MOUTH EVERY DAY NEEDED FOR SWELLING active Not Available Not Available No t Available zolpidem 10 mg tablet TAKE ONE TABLET BY MOUTH At Bedtime NEEDED FOR 30 DAYS active Not Available Not Available No t Available amoxicilli n 875 mg-potassi um clavulanat e 125 mg tablet TAKE ONE TABLET BY MOUTH TWICE DAILY FOR 10 DAYS active Not Available Not Available No t Available Triamteren e W/Hctz 37.5 mg-25 mg capsule qd active 0; Recorded 3 10:13AM by Ana Steel RN, Office Visit; Not Available Not Available Not Available famotidine qd active 0; Recorded 3 10:13AM by Ana Steel RN, Office Visit; Not Available Not Available Not Available Low Dose Aspirin qd active 0; Recorded 3 10:13AM by Ana Steel RN, Office Visit; Not Available Not Available Not Available Vitals None Recorded Social History None recorded. Functional Status None recorded. Mental Status None recorded. Family History Nothing Reported. Medical History No medical history recorded. Gynecological HistoryNo gynecological history recorded. Obstetrics History GPAL:G 0 P 0 0 0 0 Past Encounters Encounter ID Performer Location Encounter Start Date Encounter Closed Date Diagnosis/Indication Diagnosis SNOMED-CT Code Diagnosis ICD10 Code Diagnosis IMO Codes Diagnosis Note [id number] Hosea Billy MD [facility] [address] [place] [address] 02/18/2023 08:36:48 02/24/2023 09:35:01 Adult health examination 857116727 Z00.00 Screening mammography 24 156910 Z12.31 Health Concerns Section Related Observation LastModified by Organization Detai ls LastModified Time None Recorded Concern Status LastModified by Organization Details LastModified Time None Recorded Advance Directives Directive None Recorded Payers Insurance Date Sequence Insurance Name Policy Number Policy Oneal Covered Member ID Oneal Member ID Guarantor Name 02/25/2023 1 DENISE [id number] Samra Mejia [id number] Samra Mejia Notes Date Note Type Note Provider Name and Address Organization Details Recorded Time 02/18/2023 text/html Annual WellnessReported by Patient The patient is seen at their place of work the [facility] for yearly wellness examination.See Scanned Physical form and VS as well as pt recommendation summary. The patient's recent glucose and lipid panel was reviewed in detail with the patient and recommendations were made. The patient had opportunity to ask any and all questions and acknowledged having no further questions at the end of the visit. Hosea Billy MD [address] [place], [address], [facility], [place] 02/22/2023 16:58:38 OBGyn Episode No OBEpisode recorded.
--- OUTSIDE RECORDS SUMMARY | 2024-12-01 03:17 | XMS_ITS | Patient Health Record ---
Author Organization [facility] Address [address] [place] [address] Care Team Providers Care Mine Expert Name Role Phone Madai Dunbar Primary Care Provider Unavaila ble Allergies No Known Allergies Reason For Referral No Information Medications Medication SIG (Take, Route, Frequency, Duration) Notes Start Date End Date Status Carafate 1 GM 1 tablet on an empty stomach Orally three times a day Active Pantoprazole Sodium 40 MG 1 tablet Orally bid Active Ozempic (0.25 or 0.5 MG/DOSE) 2 MG/1.5ML 0.5 mg Subcutaneous weekly Not-Taking Triamterene-HCTZ 37.5-25 MG TAKE ONE TABLET BY MOUTH EVERY DAY NEEDED FOR SWELLING; Duration: 30 Active Nuarfbcb-Hseizjgcd-BZ 1 % 4 drops into affected ear Otic four times a day; Duration: 7 days Not-Taking Mucinex D 60-600 MG 1 tab Orally Twice a day prn sinus; Duration: 30 days 11/23/2021 Not-Taking Problems Problem Type SNOMED Code ICD Code Onset Dates Problem Status W/U Status Risk Notes Problem Body mass index 30.00 to 34.99 (597516261553733) Body mass index [BMI] 31.0-31.9, adult (Z68.31) Active confirmed Problem Acute cough (5500360929981001 04) Acute cough (R05.1) Active confirmed Problem Posttraumatic stress disorder (98799227) Post traumatic stress disorder (PTSD) (F43.10) Active confirmed Problem Body mass index 35.00 to 39.99 (109869055300952) Body mass index 35.0-35.9, adult (Z68.35) Active confirmed Problem Sinusitis (57135490) Sinusitis (J32.9) Active confirmed Problem Acute frontal sinusitis (54528300) Acute non-recurrent frontal sinusitis (J01.10) Active confirmed Problem Major depression, single episode (33536239) Depression, major (F32.9) Active confirmed Problem Urgency of micturition (36047016) Urgency of micturition (R39.15) Active confirmed Problem Anxiety (76957789) Anxiety (F41.9) Active confirmed Problem History of gallstones (280838566) History of gallstones (Z87.19) Active confirmed Problem Overactive urinary bladder (disorder) (727691536) OAB (overactive bladder) (N32.81) Active confirmed Problem Obesity (568766896) Obesity (BMI 30-39.9) (E66.9) Active confirmed Plan Of Treatment No Information Insurance Providers Payer Name Payer Address Payer Phone Subscriber Number Group Number Insured Name Patient Relationship to Insured Coverage Start Date Coverage End Date [address] [place] [id number] [phone] [id number] Samra Mejia Self - patient is the insured Medical (General) History Medical History History ICD Code anxiety GERD gallstones depression covid shingles Surgical History Surgery Date(Month/Year) partial hysterectomy cholecystectomy sling, at bladder neck fistula repair (rectovaginal) Hospitalization History Reason Date(Month/Year) see surgical history childbirth x3
--- NOTE | 2024-12-01 03:33 | CTR_ITS ---
PROCEDURE INFORMATION: Exam: CT Abdomen And Pelvis Without Contrast Exam date and time: 12/01/2024 3:44 AM Age: 49 years old Clinical indication: Abdominal pain; Flank; Right; Prior surgery; Surgery date: 6+ months; Surgery type: Gb. Hysterectomy; Additional info: R flank pain TECHNIQUE: Imaging protocol: Computed tomography of the abdomen and pelvis without contrast. Radiation optimization: All CT scans at this facility use at least one of these dose optimization techniques: automated exposure control; mA and/or kV adjustment per patient size (includes targeted exams where dose is matched to clinical indication); or iterative reconstruction. COMPARISON: CT abdomen pelvis wo con [id number] 02/21/2023 9:20 AM RADIATION DOSE METRICS: Total DLP (mGy-cm): 885.93 FINDINGS: Lungs: Bibasilar atelectasis. Liver: Normal. No mass. Gallbladder and biliary ducts: Status post cholecystectomy. Pancreas: Normal. No ductal dilation. Spleen: Normal. No splenomegaly. Adrenal glands: Normal. No mass. Kidneys and ureters: Normal. No hydronephrosis. Stomach and bowel: Unremarkable. No obstruction. No mucosal thickening. Appendix: No evidence of appendicitis. Intraperitoneal space: Unremarkable. No free air. No significant fluid collection. Vasculature: Phleboliths in the pelvis. Lymph nodes: Unremarkable. No enlarged lymph nodes. Urinary bladder: Bladder is decompressed. Reproductive: Status post hysterectomy. Bones/joints: Degenerative disc disease L4-L5. Soft tissues: Unremarkable. Other findings: No acute abnormality in the abdomen or pelvis. CT/CT kidney stone [id number] IMPRESSION: 1. No acute abnormality in the abdomen or pelvis. 2. Status post hysterectomy. 3. Status post cholecystectomy.
[2024-12-01 03:35] LABS: Hematocrit 39.1 % (36-47); Hemoglobin 12.80 g/dL (11.27-16.99); Mean Corpuscular HGB Conc 32.7 g/dL (30-55); Mean Corpuscular Hemoglobin 27.5 pg (27-33); Mean Corpuscular Volume 83.9 fl (85-98); Nucleated Red Blood Cells % 0 %; Platelet Count 240 10^3/cmm (157-399); Red Blood Count 4.66 10^6/uL (3.85-5.65); White Blood Count 10.07 10^3/uL (3.29-11.43)
[2024-12-01] MEDS: ondansetron 2 mg/ML SDV 2 mL 4 MG IVP (03:43)
[2024-12-01 03:46] VITALS: BP 141/96; PULSE 82; RESP 18; O2SAT 98
[2024-12-01 03:48] LABS: HCG, Serum Qual Negative (Negative)
[2024-12-01 03:57] LABS: Alanine Aminotransferase 29 U/L (0-33); Albumin Level 4.4 g/dL (3.5-5.2); Alkaline Phosphatase 74 U/L (35-105); Anion Gap 14.4 (5-19); Aspartate Amino Transferase 21 U/L (0-32); Blood Urea Nitrogen 12 mg/dL (6-20); Calcium 9.2 mg/dL (8.5-10.5); Carbon Dioxide 29 mmol/L (22-29); Chloride 101 mmol/L (98-107); Creatinine Clr Calc Pharmacy 127.3722; Globulin 3.2 g/dL (1.3-4.6); Glucose 136 mg/dL (65-115); Lipase 91 U/L (13-60); Osmolality Calculated 294 mOsm/kg (285-295); Potassium 3.4 mmol/L (3.5-5.1); Sodium 141 mmol/L (136-145); Total Protein 7.6 g/dL (6.6-8.7)
--- NOTE | 2024-12-01 04:00 | W.ED.ABDPA2 ---
HPI - Abdominal Pain General: Chief Complaint: Abdominal Pain Stated Complaint: BACK PAIN Time Seen by Provider: 12/01/24 03:20 History of Present Illness: Patient is a 49-year-old female who presents today with acute onset of severe pain described as stabbing in her groin, and her back. The pain began today. Patient reports this pain is different and more severe than previous episodes, stating she could usually handle her typical back pain. She denies that this is similar to her previous herniated disc, which was reportedly surgically corrected. Patient also reports associated nausea and diarrhea. She denies dysuria or hematuria. Patient received some medication prior to this evaluation which provided minimal, temporary relief. Related Data Home Medications ?Medication ?Instructions ?Recorded ?Confirmed triamterene 37.5 1 tab PO DAILY 05/30/19 01/17/24 mg-hydrochlorothiazide 25 mg tablet pantoprazole 40 mg tablet,delayed 40 mg PO BID 11/02/20 01/17/24 release paroxetine HCl 10 mg tablet 10 mg PO DAILY 11/04/23 01/17/24 Previous Rx's ?Medication ?Instructions ?Recorded mupirocin 2 % topical ointment 1 applic topical BID 7 days #22 12/02/23 grams levofloxacin 750 mg tablet 750 mg PO DAILY 7 days #7 tabs 01/17/24 promethazine-DM 6.25 mg-15 mg/5 mL 10 ml PO Q6H PRN cough #473 mL 01/17/24 oral syrup hydrocodone 5 mg-acetaminophen 325 1 tab PO Q8H PRN pain #7 tabs 12/01/24 mg tablet methylprednisolone 4 mg tablets in See Rx Instructions PO .COMPLEX 12/01/24 a dose pack (Medrol (Brian)) #21 ea Allergies Allergy/AdvReac Type Severity Reaction Status Date / Time No Known Allergies Allergy Verified 01/17/24 17:58 Review of Systems Narrative: Constitutional: Denies known fever Gastrointestinal: Positive for nausea and diarrhea Genitourinary: Denies dysuria, denies hematuria Musculoskeletal: Positive for severe back pain, groin pain, and leg pain [facility] PFSH: Medical History Gastritis GERD (gastroesophageal reflux disease) Surgical History Hx of hysterectomy Hx of colonoscopy with polypectomy History of cholecystectomy Family History Grandmother Diabetes Father Diabetes Hyperlipidemia Hypertension Mother Hypertension Denies family history of Colon cancer Ovarian cancer Clotting disorder Bleeding disorder Uterine cancer Stroke Social History Smoking and tobacco/nicotine status: never used tobacco/nicotine Physical Exam Const: GENERAL APPEARANCE: cooperative and ill appearing (mildly); not frail appearing HENMT: COMMON NORMALS: normocephalic, atraumatic and Normal external nose present HEAD & SCALP: normocephalic and atraumatic FACE & SINUS: normal facial exam and face symmetric NOSE: Normal external nose present Eye: COMMON NORMALS: Equal, round and reactive pupils present and EOMs intact bilaterally PUPIL: Yes Equal, round and reactive pupils present Neck/C-Spine: GENERAL: Yes trachea midline Chest: CHEST: Yes Symmetrical chest wall rise Resp: COMMON NORMALS: normal respiratory effort, No retractions, No use of accessory muscles and clear to auscultation bilaterally AUSCULTATION: clear to auscultation bilaterally Cardio: COMMON NORMALS: regular rate and regular rhythm RATE: regular rate RHYTHM: regular rhythm GI: COMMON NORMALS: Normal to inspection, nondistended, normoactive bowel sounds present PALPATION: Yes Tenderness to palpation present (GI) Details: RLQ : BLADDER/KIDNEY EXAM: Yes CVA tenderness on the right Back/Pelvis: GENERAL BACK: Yes CVA tenderness Extremity: COMMON NORMALS: no pedal edema Neuro: WAYNE COMA SCALE: document GCS findings Wayne coma scale eye opening: Spontaneous Wayne coma scale verbal response: Orientated [place] coma scale motor response: Obey commands Kersey coma scale total score: 15 SENSORY EXAM: Yes extremities (intact) Psych: COMMON NORMALS: speech normal SPEECH: Yes normal speech Skin: COMMON NORMALS: no rashes or lesions noted GENERAL SKIN EXAM: no rashes or lesions noted Course Vital Signs: Vital signs: Vital Signs Temperature 98.8 F 12/01/24 03:17 Pulse Rate 67 12/01/24 04:53 Respiratory Rate 16 12/01/24 04:53 Blood Pressure 142/82 12/01/24 04:53 Pulse Oximetry 98 12/01/24 04:53 Oxygen Delivery Me thod Room Air 12/01/24 03:46 MDM - Abdominal Pain Medical Decision Making Pain improved after Dilaudid Toradol and Zofran. CBC BMP are not remarkable. CRP is 3. Lipase is 91. hCG is obviously negative. Pain is down to a [address] of the belly shows no acute abnormality. This may be spine related. She was placed on a tapering dose of steroid, pain medication, to return for any worsening symptoms despite treatment Lab Data 12/01/24 03:28 12/01/24 03:28 Labs/Radiology: Radiology Impressions Abdomen/Pelvis CT 12/01/24 03:33 IMPRESSION: 1. No acute abnormality in the abdomen or pelvis. 2. Status post hysterectomy. 3. Status post cholecystectomy. Laboratory Results WBC 10.07 10^3/uL (3.29-11.43) 12/01/24 03:28 RBC 4.66 10^6/uL (3.85-5.65) 12/01/24 03:28 Hgb 12.80 g/dL (11.27-16.99) 12/01/24 03:28 Hct 39.1 % (36-47) 12/01/24 03:28 MCV 83.9 fl (85-98) L 12/01/24 03:28 MCH 27.5 pg (27-33) 12/01/24 03: MCHC 32.7 g/dL (30-55) 12/01/24 03:28 RDW 15.3 % (12.1-15.1) H 12/01/24 03:28 Plt Count 240 10^3/cmm (157-399) 12/01/24 03:28 MPV 10.6 fL (7.4-10.4) H 12/01/24 03:28 Neut % (Auto) 72.6 % 12/01/24 03:28 Lymph % (Auto) 16.3 % 12/01/24 03:28 [place] % (Auto) 6.0 % 12/01/24 03:28 Eos % (Auto) 3.6 % 12/01/24 03:28 Baso % (Auto) 1.0 % 12/01/24 03:28 Neut # (Auto) 7.32 10^3/uL (1.8-7.7) 12/01/24 03:28 Lymph # (Auto) 1.6 10^3/uL (0.8-4.8) 12/01/24 03:28 [place] # (Auto) 0.6 10^3/uL (0.2-0.9) 12/01/24 03:28 Eos # (Auto) 0.4 10^3/uL (0.0-0.8) 12/01/24 03:28 Baso # (Auto) 0.1 10^3/uL (0.0-0.1) 12/01/24 03:28 Nucleated RBC % (auto) 0 % 12/01/24 03:28 Nucleated RBCs # 0.0 /100WBC 12/01/24 03:28 Sodium 141 mmol/L (136-145) 12/01/24 03:28 Potassium 3.4 mmol/L (3.5-5.1) L 12/01/24 03:28 Chloride 101 mmol/L (98-107) 12/01/24 03:28 Carbon Dioxide 29 mmol/L (22-29) 12/01/24 03:28 Anion Gap 14.4 (5-19) 12/01/24 03:28 BUN 12 mg/dL (6-20) 12/01/24 03:28 Creatinine 0.6 mg/dL (0.5-0.9) 12/01/24 03:28 GFR Calculation 105.4 mL/min (90-130) 12/01/24 03:28 Glucose 136 mg/dL (65-115) H 12/01/24 03:28 Calculated Osmolality 294 mOsm/kg (285-295) 12/01/24 03:28 Calcium 9.2 mg/dL (8.5-10.5) 12/01/24 03:28 Total Bilirubin 0.2 mg/dL (0.15-1.2) 12/01/24 03:28 AST 21 U/L (0-32) 12/01/24 03:28 ALT 29 U/L (0-33) 12/01/24 03:28 Alkaline Phosphatase 74 U/L (35-105) 12/01/24 03:28 C-Reactive Protein 3.0 mg/L (0.0-4.9) 12/01/24 03:28 Total Protein 7.6 g/dL (6.6-8.7) 12/01/24 03:28 Albumin 4.4 g/dL (3.5-5.2) 12/01/24 03:28 Globulin 3.2 g/dL (1.3-4.6) 12/01/24 03:28 Lipase 91 U/L (13-60) H 12/01/24 03:28 HCG, Qual Negative (Negative) 12/01/24 03:28 Urine Color Yellow (Yellow) 12/01/24 03:38 Urine Appearance Cloudy (CLEAR) A 12/01/24 03:38 Urine pH 6.0 (5-7) 12/01/24 03:38 Ur Specific [place] 1.021 (1.005-1.030) 12/01/24 03:38 Urine Protein Trace (Negative) A 12/01/24 03:38 Urine Glucose (UA) Negative (Normal) 12/01/24 03:38 Urine Ketones Trace (Negative) 12/01/24 03:38 Urine Blood Negative (Negative) 12/01/24 03:38 Urine Nitrate Negative (Negative) 12/01/24 03:38 Urine Bilirubin Negative (Negative) 12/01/24 03:38 Urine Urobilinogen 1.0 mg/dL (Negative) 12/01/24 03:38 Ur Leukocyte Esterase Negative (Negative) 12/01/24 03:38 Urine RBC 3-5 /hpf (0-2) 12/01/24 03:38 Urine WBC 11-20 /hpf (0-5) H 12/01/24 03:38 Ur Squamous Epith Cells 6-10 /hpf (0-5) 12/01/24 03:38 Amorphous Sediment Not Reportable 12/01/24 03:38 Urine Bacteria Trace /hpf (NONE) 12/01/24 03:38 Hyaline Casts 4.52 /lpf 12/01/24 03:38 All radiology interpretation(s) finalized by discharge Discharge Plan Discharge Patient Disposition: Home Clinical Impression: Renal colic, Right flank pain Condition: Stable Prescriptions: New hydrocodone-acetaminophen 5-325 mg tablet 1 tab PO Q8H PRN (Reason: pain) Qty: 7 0RF methylprednisolone [Medrol (Brian)] 4 mg tablets,dose pack See Rx Instructions .ROUTE .COMPLEX Qty: 21 0RF Rx Instructions: orally per package directions No Action mupirocin 2 % ointment 1 applic topical BID 7 Days Qty: 22 0RF paroxetine HCl 10 mg tablet 10 mg PO DAILY levofloxacin 750 mg tablet 750 mg PO DAILY 7 Days Qty: 7 0RF promethazine-DM 6.25-15 mg/5 mL syrup 10 ml PO Q6H PRN (Reason: cough) Qty: 473 0RF pantoprazole 40 mg Tablet,Delayed Release (Dr/Ec) 40 mg PO BID triamterene-hydrochlorothiazid 37.5-25 mg tablet 1 tab PO DAILY Discharge Orders: Discharge ED (Routine); Ordered 12/01/24 Ordered By: Garfield Herbert Patient Instructions: Abdominal Pain (ED), Flank Pain (ED), Opioid Safety, Pain Management, Patient Portal & [place] Instructions Activity Restrictions/Additional Instructions: Your urinalysis does not show any evidence of infection, your CAT scan does not show a kidney stone or other problem. Pain may be coming from your back. Medication as directed. Use pain medication for significant pain. Call your doctor on Tuesday for follow-up appointment this week. Print Language: Togolese Coding Level of Care Code ED [employer] for Kesha Scott
[2024-12-01 04:08] LABS: Glucose Urine UA Negative (Normal); Nitrate Urine Negative (Negative); Specific Gravity, Urine 1.021 (1.005-1.030)
[2024-12-01] MEDS: HYDROmorphone 0.5 MG/0.5 ML INJ 1 MG IVP (04:10)
[2024-12-01 04:13] LABS: Add Urine Microscopic? YES
[2024-12-01 04:53] VITALS: BP 142/82; PULSE 67; RESP 16; O2SAT 98
== END 2024-12-01 04:59 | disposition home or self-care (01) ==
PROVIDERS: Emergency Provider Emergency Medicine
DX: N23 Unspecified renal colic (principal)
CPT/HCPCS: 36415; 74176; 80053; 81001; 83690; 84703; 85025; 86140; 96361; 96374; 96375; 99285; J1171; J1885; J2405; J7040